=== PATIENT | female | born 1970 | race African-American/Black ===

== ENCOUNTER 2016-12-26 11:17 | Emergency (ER) | payer MEDICAID ==
[2016-12-26] MEDS ORDERED: METOCLOPRAMIDE HCL 10 MG TABLET PO ONE (12:23)
[2016-12-26] MEDS ORDERED: KETOROLAC TROMETHAMINE 60 MG/2 ML SDV IM ONE (12:23)
[2016-12-26] MEDS ORDERED: DIPHENHYDRAMINE HCL 25 MG CAPSULE PO ONE (12:23)
[2016-12-26] MEDS ORDERED: TETRACAINE HCL 0.5% OPH SOLN 2 ML OU ONE (12:41)
--- NOTE | 2016-12-26 12:46 | ER Document Report ---
ED General - General Chief Complaint: Headache Stated Complaint: BLURRED VISION Time Seen by Provider: 12/26/16 12:18 Notes: Patient presents with 2 days of headache gradual onset right-sided than left- sided radiating to her left neck, not throbbing, constant and associated with preceding visual phenomenon in the right eye consisting of "whispers" with trouble from right to left. These sometimes recur during a headache. She has no fever focal weakness numbness tingling. She was seen for the same thing here a couple years ago had a negative head CT. She is not aware of any diagnoses of retinal detachment vitreous hemorrhage or glaucoma., No fever. No trauma TRAVEL OUTSIDE OF THE [place] IN LAST 30 DAYS: No - Related Data Allergies/Adverse Reactions: No Known Allergies Allergy (Verified 12/26/16 11:29) Past Medical History - General Information source: Patient - Social History Smoking Status: Never Smoker Family History: None, Reviewed & Not Pertinent, CAD, DM, Hyperlipidemia, Hypertension, Malignancy - Maternal grandfather had stomach cancer Patient has suicidal ideation: No Patient has homicidal ideation: No - Past Medical History Cardiac Medical History: Reports: Hx Hypercholesterolemia, Hx Hypertension Neurological Medical History: Reports: Hx Seizures - STATES HAD A SEIZURE IN 2004 Endocrine Medical History: Reports: Hx Diabetes Mellitus Type 2 Renal/ Medical History: Denies: Hx Peritoneal Dialysis GI Medical History: Reports: Hx Gastroesophageal Reflux Disease Psychiatric Medical History: Reports: Hx Depression Past Surgical History: Reports: Hx Hysterectomy - Immunizations Hx Diphtheria, Pertussis, Tetanus Vaccination: No Review of Systems - Review of Systems Notes: REVIEW OF SYSTEMS GEN: Denies fever, chills, weight loss ENT: Denies sore throat, nasal discharge, ear pain EYES: Visual phenomena with blurry vision, tinnitus eye pain, discharge CV: Denies chest pain, palpitations, edema RESP: Denies cough, shortness of breath, wheezing GI: Denies abdominal pain, nausea, vomiting, diarrhea MSK: Denies joint pain/swelling, edema, SKIN: Denies rash, skin lesions LYMPH: Denies swollen glands/lymph nodes NEURO: Headache PSYCH: Denies depression, suicidal or homicidal ideation PHYSICAL EXAMINATION General: No acute distress, well-nourished Head: Atraumatic, normocephalic ENT: Mouth normal, oropharynx moist, no exudates or tonsillar enlargement Eyes: Conjunctiva normal, pupils equal, lids normal. Extraocular movements intact. Neck: No JVD, supple, no guarding CVS: Normal rate, regular rhythm, no murmurs Resp: No resp distress, equal and normal breath sounds bilaterally GI: Nondistended, soft, no tenderness to palpation, no rebound or guarding Ext: No deformities, no edema, normal range of motion in upper and lower ext Back: No CVA or midline TTP Skin: No rash, warm Lymphatic: No lymphadeopathy noted Neuro: Awake, alert. Face symmetric. No pronator drift. Normal coordination. GCS 15. Physical Exam - Vital signs Vitals: Temp Pulse Resp BP Pulse Ox 98.3 F 83 16 186/102 H 98 12/26/16 11:29 12/26/16 11:29 12/26/16 11:29 12/26/16 11:29 12/26/16 11:29 Course - Re-evaluation Re-evalutation: 12/26/16 12:46 Diabetic female presents with 2 days of headache hypertension and visual phenomena. Differential includes hypertensive headache, migrainous headacheshe does say that she has had migraines in the past and this feels similar, also elevated intraocular pressure and vitreous detachment. She has a migraine with migraine cocktail get a head CT check eye pressures. 12/26/16 13:01 Patient scan appears at baseline with no signs of increased pressure. Her Martin- Pen pressures are 17 on the right and 16 on the left. Pupils remain reactive. I performed an ultrasound of her right eye where her symptoms are, did not see vitreous hemorrhage, vitreous detachment or retinal detachment on full gain settings of full extraocular movements. Her visual symptoms are likely secondary to migraine versus hypertension, do not believe this is a TIA based on the isolated eye symptoms. She will be discharged home after feeling better for medications and follow-up with her primary care doctor Dr. Ponce next week. I have discussed with the patient there likely diagnosis, aftercare plan, follow -up plans and my usual and customary return precautions. They verbalized understanding of this. 12/26/16 13:47 Blood pressure has decreased spontaneously to the 140s. Safe for discharge home. - Vital Signs Vital signs: Temp Pulse Resp BP Pulse Ox 98.4 F 60 16 147/68 H 97 12/26/16 13:27 12/26/16 13:27 12/26/16 13:27 12/26/16 13:27 12/26/16 13:27 - Diagnostic Test Radiology reviewed: Pending, Image reviewed Discharge - Discharge Clinical Impression: Hypertension Qualifiers: Hypertension type: essential hypertension Qualified Code(s): I10 - Essential ( primary) hypertension Headache Qualifiers: Headache type: other headache syndrome Qualified Code(s): G44.89 - Other headache syndrome Condition: Good Disposition: HOME, SELF-CARE Instructions: Headache ([facility]) Additional Instructions: Her blood pressure was elevated today and he may need to adjust her medications with her primary doctor. We did not find any issues with her eyes, and your CAT scan was normal. Please follow-up with your doctor in 3 days. Forms: Elevated Blood Pressure Referrals: FRANCI PONCE NP [Primary Care Provider] - Follow up as needed
--- NOTE | 2016-12-26 12:55 | RADIOLOGY REPORT (SQ) ---
EXAM DESCRIPTION: CT HEAD WITHOUT COMPLETED DATE/TIME: 12/26/2016 12:41 pm REASON FOR STUDY: HUGHES visual changes COMPARISON: September 2014 TECHNIQUE: Axial images acquired through the brain without intravenous contrast. Images reviewed wi th bone, brain and subdural windows. Images stored on PACS. All CT scanners at this facility use dose modulation, iterative reconstruction, and/or weight based d osing when appropriate to reduce radiation dose to as low as reasonably achievable (ALARA). [facility]: Dose Right [facility]: CareDose [facility]: Dose Right [facility]: Teradose 4D [facility]: Smart Oculus VR RADIATION DOSE: Up-to-date CT equipment and radiation dose reduction techniques were employed. CTDIv ol: 64.6 mGy. DLP: 1163 mGy-cm. mGy. LIMITATIONS: None. FINDINGS: VENTRICLES: Normal size and contour. CEREBRUM: No masses. No hemorrhage. No midline shift. Normal perez/white matter differentiation. N o evidence for acute infarction. CEREBELLUM: No masses. No hemorrhage. No alteration of density. No evidence for acute infarction. EXTRAAXIAL SPACES: No fluid collections. No masses. ORBITS AND GLOBE: No intra- or extraconal masses. Normal contour of globe without masses. CALVARIUM: No fracture. PARANASAL SINUSES: No fluid or mucosal thickening. SOFT TISSUES: No mass or hematoma. OTHER: No other significant finding. IMPRESSION: NORMAL BRAIN CT WITHOUT CONTRAST. TECHNICAL DOCUMENTATION: JOB ID: [id number] Quality ID # [id number]: Final reports with documentation of one or more dose reduction techniques (e.g., Au tomated exposure control, adjustment of the mA and/or kV according to patient size, use of iterative reconstruction technique) 2010 [employer]- All Rights Reserved
[2016-12-26 13:29] VITALS: BP 147/68
== END 2016-12-26 14:00 | disposition home or self-care (01) ==
LOC: ER 11:17
DX: G44.89 Other headache syndrome (principal); I10 Essential (primary) hypertension; H53.8 Other visual disturbances; E11.9 Type 2 diabetes mellitus without complications; Z86.69 Personal history of other diseases of the nervous system and sense organs
CPT/HCPCS: 99284; 96372; 70450; J3490 ×3; J1885

== ENCOUNTER 2017-05-18 07:41 | Emergency (ER) | payer MEDICAID ==
[2017-05-18] MEDS ORDERED: ACETAMINOPHEN 325 MG TABLET PO ONE (07:57)
[2017-05-18] MEDS ORDERED: MORPHINE SULFATE 10 MG/ML INJ IV ONE (08:13)
--- NOTE | 2017-05-18 08:19 | RADIOLOGY REPORT (SQ) ---
EXAM DESCRIPTION: SHOULDER LEFT 2 OR MORE VIEWS COMPLETED DATE/TIME: 05/18/2017 8:10 am REASON FOR STUDY: left shoulder pain COMPARISON: None. NUMBER OF VIEWS: Two views. TECHNIQUE: AP and Y-view images acquired of the left shoulder. LIMITATIONS: None. FINDINGS: MINERALIZATION: Normal. BONES: No acute fracture or dislocation. No worrisome bone lesions. JOINTS: Anterior left humeral head dislocation out of the glenoid fossa. No widening at the acromioclavicular joint. VISUALIZED LUNGS AND RIBS: No pneumothorax. No rib fracture. SOFT TISSUES: No radiopaque foreign body. OTHER: No other significant finding. IMPRESSION: Anterior left humeral head dislocation out of the glenoid TECHNICAL DOCUMENTATION: JOB ID: [id number] [employer]- All Rights Reserved
--- NOTE | 2017-05-18 08:23 | ER Document Report ---
ED Extremity Problem, Upper - General Chief Complaint: Fall Injury Stated Complaint: FALL/SHOULDER PAIN Time Seen by Provider: 05/18/17 07:56 Notes: The patient is a 47-year-old female, past medical history anxiety, hypertension , prior left shoulder dislocations, presents with a left shoulder deformity after she tripped over stairs, reached up to grab the railing and felt her left shoulder pop. Her last meal was last night and she has had no prior anesthesia complications. She denies numbness, tingling, head injury, neck pain or any other injuries. TRAVEL OUTSIDE OF THE [place] IN LAST 30 DAYS: No - Related Data Allergies/Adverse Reactions: No Known Allergies Allergy (Verified 05/18/17 07:58) Past Medical History - General Information source: Patient - Social History Smoking Status: Unknown if Ever Smoked Family History: None, Reviewed & Not Pertinent, CAD, DM, Hyperlipidemia, Hypertension, Malignancy - Maternal grandfather had stomach cancer - Past Medical History Cardiac Medical History: Reports: Hx Hypercholesterolemia, Hx Hypertension Neurological Medical History: Reports: Hx Seizures - STATES HAD A SEIZURE IN 2004 Endocrine Medical History: Reports: Hx Diabetes Mellitus Type 2 Renal/ Medical History: Denies: Hx Peritoneal Dialysis GI Medical History: Reports: Hx Gastroesophageal Reflux Disease Psychiatric Medical History: Reports: Hx Depression Past Surgical History: Reports: Hx Hysterectomy - Immunizations Hx Diphtheria, Pertussis, Tetanus Vaccination: No Review of Systems - Review of Systems Notes: REVIEW OF SYSTEMS: CONSTITUTIONAL: -fevers, -chills EENT: -eye pain, -difficulty swallowing, -nasal congestion CARDIOVASCULAR:-chest pain, -syncope. RESPIRATORY: -cough, -SOB GASTROINTESTINAL: -abdominal pain, - nausea, -vomiting, -diarrhea GENITOURINARY: -dysuria, -hematuria MUSCULOSKELETAL: +left shoulder pain and deformity, -back pain, -neck pain SKIN: -rash or skin lesions. HEMATOLOGIC: -easy bruising or bleeding. LYMPHATIC: -swollen, enlarged glands. NEUROLOGICAL: -altered mental status or loss of consciousness, -headache, - neurologic symptoms PSYCHIATRIC: -anxiety, -depression. ALL OTHER SYSTEMS REVIEWED AND NEGATIVE. Physical Exam - Vital signs Vitals: Temp Pulse Resp BP Pulse Ox 98.2 F 89 18 145/89 H 97 05/18/17 07:57 05/18/17 07:57 05/18/17 07:57 05/18/17 07:57 05/18/17 07:57 - Notes Notes: PHYSICAL EXAMINATION: GENERAL: In moderate distress. HEAD: Atraumatic, normocephalic. EYES: Pupils equal round and reactive to light, extraocular movements intact, sclera anicteric, conjunctiva are normal. ENT: nares patent, oropharynx clear without exudates. Moist mucous membranes. No loose teeth. NECK: Normal range of motion, supple without lymphadenopathy LUNGS: Breath sounds clear to auscultation bilaterally and equal. No wheezes rales or rhonchi. HEART: Regular rate and rhythm without murmurs ABDOMEN: Soft, nontender, normoactive bowel sounds. No guarding, no rebound. No masses appreciated. EXTREMITIES: Visible left shoulder deformity, pt holds arm in adduction. Strong distal pulses and sensation intact. NEUROLOGICAL: Cranial nerves grossly intact. Normal speech, normal gait. Normal sensory and motor exams. SKIN: Warm, Dry, normal turgor, no rashes or lesions noted. Course - Re-evaluation Re-evalutation: Patient with a recurrent left anterior shoulder dislocation. She is neurovascularly intact distally. After IV morphine, attempted to perform scapular manipulation with massaging of her deltoid, but patient could not tolerate the procedure. patient was consented for IV procedural sedation and left shoulder reduction. She understands the risks and benefits. 05/18/17 09:19 Left shoulder dislocation quickly reduced under IV propofol. This was confirmed with post reduction x-ray. Patient was placed in a shoulder immobilizer and, once awake and ambulating without difficulty, she was discharged with follow-up at orthopedics. - Vital Signs Vital signs: Temp Pulse Resp BP Pulse Ox 98.2 F 89 18 145/89 H 97 05/18/17 07:57 05/18/17 07:57 05/18/17 07:57 05/18/17 07:57 05/18/17 07:57 - Diagnostic Test Radiology reviewed: Image reviewed, Reports reviewed Radiology results interpreted by me: Left shoulder x-ray: Anterior left shoulder dislocation. Repeat left shoulder x-ray: Successful reduction Procedures - Conscious Sedation Conscious sedation Time started: 09:03 Time completed: 09:23 Consent obtained: Yes Indication: Left shoulder dislocation Last meal: 19:00 last night Pt with a mild systemic disease.: P2. - ASA Classification. Airway Evaluation: Normal anatomy Mallampati Classification: Class 1 Used during procedure: Suction available, IV access obtained, Pulse ox on pt., library monitor on pt. Medications administered: Diprivan Reversal agents: None I personally performed/intraservice time: Sedation, Procedure, 30 min or less Complications: No - Immobilization Left Arm Time completed: :15 Pre-Proc Neuro Vasc Exam: Normal Immobilizer type: Shoulder immobilizer Performed by: Provider Post-Proc Neuro Vasc Exam: Normal Alignment checked and good: Yes - Joint Reduction/Fracture Care Left Shoulder Time completed: : Consent obtained: Yes Conscious sedation: Yes Pre-procedure NV exam: Yes Fracture: Other - Dislocation Manipulation comment: Traction-Countertraction Technique Post-procedure NV exam: Yes Post-reduction x-ray: Joint reduced Reduction attempts: 1 Complications: No Discharge - Discharge Clinical Impression: Recurrent dislocation, left shoulder Condition: Stable Disposition: HOME, SELF-CARE Additional Instructions: Dislocation You have suffered a dislocation of your joint. It has been reduced (put back in place). It will take time for the tissues around the joint to heal. The joint will be immobilized at first. If possible, elevate the injured area and apply ice packs. After healing is underway, the joint will require [id number] and strengthening exercises. The follow-up care is important in avoiding residual problems following your dislocation. If you note any numbness, muscle weakness, or severe swelling in the affected area, call the doctor or return for re-evaluation at once. Forms: Elevated Blood Pressure Referrals: FREDERICK FARR DO [ACTIVE STAFF] - Follow up as needed
[2017-05-18] MEDS ORDERED: PROPOFOL INJ 200 MG/20 ML VIAL IV ONE (08:39)
[2017-05-18] MEDS ORDERED: NORMAL SALINE 1000 ML 1,000 ML IV ONE (08:54)
--- NOTE | 2017-05-18 09:33 | RADIOLOGY REPORT (SQ) ---
EXAM DESCRIPTION: SHOULDER LEFT 2 OR MORE VIEWS COMPLETED DATE/TIME: 05/18/2017 9:21 am REASON FOR STUDY: post-reduction COMPARISON: Left shoulder films earlier today NUMBER OF VIEWS: Two views TECHNIQUE: AP and Y-view images acquired of the left shoulder. LIMITATIONS: None. FINDINGS: Anterior left glenohumeral dislocation seen on prior films 0800 hours today has been reduc ed. Currently normal glenohumeral joint alignment. No fracture. AC joint intact. Left upper ribs, scap grupo, clavicle unremarkable. IMPRESSION: Post reduction left anterior glenohumeral dislocation. Currently there is normal alignm ent at the left shoulder joint without plain film evidence of acute fracture TECHNICAL DOCUMENTATION: JOB ID: [id number] [employer]- All Rights Reserved
[2017-05-18 09:57] VITALS: BP 124/74
== END 2017-05-18 10:00 | disposition home or self-care (01) ==
LOC: ER 07:41
DX: M24.412 Recurrent dislocation, left shoulder (principal); I10 Essential (primary) hypertension; E11.9 Type 2 diabetes mellitus without complications
CPT/HCPCS: 99284; 96361; 99152; 96374; 73030; 23650; L3650; J3490; J2270; J7030; J2704

== ENCOUNTER 2017-08-08 03:36 | Emergency (ER) | payer MEDICAID ==
--- NOTE | 2017-08-08 03:56 | ER Document Report ---
ED General - General Chief Complaint: Epigastric Pain Stated Complaint: CHEST,ABDOMINAL PAIN Time Seen by Provider: 08/08/17 03:55 TRAVEL OUTSIDE OF THE [place] IN LAST 30 DAYS: No - Related Data Allergies/Adverse Reactions: No Known Allergies Allergy (Verified 05/18/17 07:58) Past Medical History - Social History Smoking Status: Never Smoker Frequency of alcohol use: None Drug Abuse: None Family History: None, Reviewed & Not Pertinent, CAD, DM, Hyperlipidemia, Hypertension, Malignancy - Maternal grandfather had stomach cancer - Past Medical History Cardiac Medical History: Reports: Hx Hypercholesterolemia, Hx Hypertension Neurological Medical History: Reports: Hx Seizures - STATES HAD A SEIZURE IN 2004 Endocrine Medical History: Reports: Hx Diabetes Mellitus Type 2 Renal/ Medical History: Denies: Hx Peritoneal Dialysis GI Medical History: Reports: Hx Gastroesophageal Reflux Disease Psychiatric Medical History: Reports: Hx Depression Past Surgical History: Reports: Hx Hysterectomy - Immunizations Hx Diphtheria, Pertussis, Tetanus Vaccination: No Course - EKG Interpretation by Me Additional EKG results interpreted by me: 08/08/17 03:56 EKG is reviewed and interpreted by me. EKG shows sinus rhythm with a rate of [address] segment elevation or depression. No concerning T-wave inversions. MD interval, QRS duration, QTc intervals are within normal range. Old EKG for comparison is from February 07, 2015. Discharge - Discharge Referrals: FRANCI PONCE NP [Primary Care Provider] - Follow up as needed
[2017-08-08] MEDS ORDERED: MAG HYDROX/AL HYDROX/SIMETH SUSP 30 ML UDCUP PO ONE (04:01)
[2017-08-08] MEDS ORDERED: LIDOCAINE 2% VISCOUS SOLN 20 ML UDCUP PO ONE (04:01)
[2017-08-08] MEDS ORDERED: METOCLOPRAMIDE HCL ORAL SOLN 10 MG/10 ML UDCUP PO ONE (04:01)
[2017-08-08] MEDS ORDERED: SIMETHICONE 80 MG TAB.CHEW PO ONE (04:02)
--- NOTE | 2017-08-08 05:27 | ER Document Report ---
Doctor's Note Notes: 08/08/17 05:26 I performed a quick triage evaluation of the patient. Patient is a 47-year-old female who presents with complaint of epigastric pain rating to the back. The complaint on the triage note also mentions chest pain however the patient says she does not have true chest pain is just the pain in the epigastrium that radiates to her back. She does have history of gastritis and has had similar pain with gastritis in the past however this is more severe. She did vomit once. No blood or emesis. She says the pain may also be related to gas however the pain seems more severe than just typical gas pain to her at this time. She did have a bowel movement for coming to the ER and says it was a normal bowel movement. She denies recent constipation. She denies any blood in her stool. She denies any fevers. She has no other complaints at this time. No history of abdominal surgeries. Does take Zantac for her history of gastritis. She had an endoscopy but she says it was many years ago. She denies them finding anything other than gastritis on endoscopy. Exam patient has pain reproducible palpation in the epigastric region. She is in moderate pain. The remainder of her abdomen is nontender. She has no pain to palpation of her chest. Vital signs are stable. I will order blood work as well as start treatment for her pain. Normal pulses in feet. 08/08/17 05:40 08/08/17 05:42 Patient continues to have pain. I have ordered some Dilaudid for pain control. Her labs just now got drawn except hard time obtaining blood. I think abdominal aneurysm is unlikely however being that the patient does have epigastric pain rating to her back I have ordered a abdominal ultrasound to evaluate her aorta.
[2017-08-08] MEDS ORDERED: HYDROMORPHONE HCL INJ/PF 2 MG/ML AMPULE IV ONE (05:40)
[2017-08-08 06:03] LABS: ABSOLUTE BASOPHILS # (AUTO) 0.1 10^3/uL (0.0-0.2); ABSOLUTE LYMPHOCYTES (AUTO) 1.9 10^3/uL (0.5-4.7); ABSOLUTE MONOCYTES (AUTO) 0.8 10^3/uL (0.1-1.4); ABSOLUTE NEUT (AUTO) 7.8 10^3/uL (1.7-8.2); BASOPHILS % (AUTO) 0.5 % (0-2); EOSINOPHILS % (AUTO) 0.2 % (0-6); HEMOGLOBIN 12.7 g/dL (12.0-15.5); LYMPHOCYTES % (AUTO) 18.1 % (13-45); MEAN CORPUSCULAR HGB CONC 32.4 g/dL (32.0-36.0); MEAN CORPUSCULAR VOLUME 77 fl (80-97); MONOCYTES % (AUTO) 7.2 % (3-13); PLATELET COUNT 524 10^3/uL (150-450); RED BLOOD COUNT 5.05 10^6/uL (3.72-5.28); RED CELL DISTRIBUTION WIDTH 14.9 % (11.5-14.0); TOTAL CELLS COUNTED % (AUTO) 100 %; WHITE BLOOD COUNT 10.6 10^3/uL (4.0-10.5)
[2017-08-08 06:31] LABS: ALANINE AMINOTRANSFERASE 26 U/L (9-52); ALBUMIN 4.4 g/dL (3.5-5.0); ALKALINE PHOSPHATASE 65 U/L (38-126); ANION GAP 12 (5-19); ASPARTATE AMINO TRANSFERASE 18 U/L (14-36); BILIRUBIN,DIRECT 0.3 mg/dL (0.0-0.4); BILIRUBIN,TOTAL 0.3 mg/dL (0.2-1.3); BLOOD UREA NITROGEN 9 mg/dL (7-20); CALCIUM 10.5 mg/dL (8.4-10.2); CARBON DIOXIDE 24 mmol/L (22-30); CHLORIDE 106 mmol/L (98-107); GLUCOSE 135 mg/dL (75-110); POTASSIUM 4.7 mmol/L (3.6-5.0); SODIUM 141.8 mmol/L (137-145); TOTAL PROTEIN 8.1 g/dL (6.3-8.2)
--- NOTE | 2017-08-08 06:40 | RADIOLOGY REPORT (SQ) ---
EXAM DESCRIPTION: U/S ABD AORTIC SCREENING CLINICAL HISTORY: 47 years, Female, evaluate aorta COMPARISON: 4. LIMITATIONS: Body habitus and bowel artifact. FINDINGS: Abdominal aorta: Proximal: 2.0 x 1.5 cm. Mid: 1.7 x 1.5 cm. Distal: Obscured. Iliacs: Obscured. IMPRESSION: Incomplete exam due to bowel gas artifact. Recommend noncontrast CT screening of the aorta as clinically warranted.
[2017-08-08] MEDS ORDERED: NORMAL SALINE 1000 ML 1,000 ML IV ONE (07:39)
--- NOTE | 2017-08-08 09:00 | RADIOLOGY REPORT (SQ) ---
EXAM DESCRIPTION: CTA ABDOMEN/PELVIS WCTA CHEST COMPLETED DATE/TIME: 08/08/2017 8:19 am REASON FOR STUDY: epigastric pain rad to back fu US results FINDINGS: CTA OF THE ABDOMEN: AORTA AND VESSELS: No aneurysm. No dissection. Renal arteries, SMA, celiac without stenosis. LIVER: Geographic fatty infiltration of the liver. SPLEEN: No abnormality seen. PANCREAS: No abnormality seen. GALLBLADDER: Cholelithiasis. ADRENAL GLANDS: No significant masses or asymmetry. RIGHT KIDNEY AND URETER: Small cortical cysts noted within the right kidney most too small to charact erize. . LEFT KIDNEY AND URETER: Prominent cortical cyst upper pole left kidney. Multiple additional cortical cyst too small to characterize. RETROPERITONEUM: No retroperitoneal adenopathy, hemorrhage or masses. BOWEL AND PERITONEAL CAVITY: No masses or inflammatory changes. No free fluid or peritoneal masses. APPENDIX: Normal. ABDOMINAL WALL: Diastases of rectus muscles. Umbilical hernia. BONY STRUCTURES: No significant or acute findings. 3-D IMAGING: Confirms the above findings. OTHER: NO OTHER SIGNIFICANT FINDING. CTA OF CHEST: LUNGS AND PLEURA: There is chronic scarring noted in the lingula. THORACIC AORTA AND GREAT VESSELS: No aneurysm. The ascending thoracic aorta measures 2.9 x 2.7 cm. The descending thoracic aorta measures 2.4 x 2.3 cm. HEART: No pericardial effusion. No significant coronary artery calcifications. PULMONARY ARTERIES: No pulmonary emboli. HILAR AND MEDIASTINAL STRUCTURES: Nonenlarged anterior mediastinal node measuring 0.5 cm. No adenopa thy. HARDWARE: None in the chest.. THYROID AND OTHER SOFT TISSUES: Multinodular thyroid. IMPRESSION: 1 . NO EVIDENCE OF THORACIC ANEURYSM. MULTINODULAR THYROID. CHRONIC LINGULAR SCARRING . 2. NO EVIDENCE OF ABDOMINAL AORTIC ANEURYSM. MULTIPLE HYPODENSITIES WITHIN THE KIDNEYS MOST CONS ISTENT WITH CORTICAL CYST. FATTY INFILTRATION THE LIVER. CHOLELITHIASIS. TECHNICAL DOCUMENTATION: JOB ID: [id number] Quality ID # [id number]: Final reports with documentation of one or more dose reduction techniques (e.g., Au tomated exposure control, adjustment of the mA and/or kV according to patient size, use of iterative reconstruction technique) 2010 [employer]- All Rights Reserved COMPARISON: Aortic ultrasound 08/08/2017. Abdominal ultrasound 10/01/2014. TECHNIQUE: CT scan of the abdominal aorta extending to the iliac bifurcation performed with and with out intravenous contrast using helical scanning technique with dynamic intravenous contrast injection . Images reviewed with lung, soft tissue, and bone windows. Reconstructed coronal and sagittal MPR im ages reviewed. All images stored on PACS. Advanced 3D imaging as volume rendering, MIPS, SSD performed? yes All CT scanners at this facility use dose modulation, iterative reconstruction, and/or weight based d osing when appropriate to reduce radiation dose to as low as reasonably achievable (ALARA). [facility]: Dose Right [facility]: CareDose [facility]: Dose Right [facility]: Teradose 4D [facility]: ProductGram CONTRAST TYPE AND DOSE: contrast/concentration: Isovue 370.00 mg/ml; Total Contrast Delivered: 100.0 ml; Total Saline Delivered: 90.0 ml contrast/concentration: Isovue 370.00 mg/ml; Total Contrast Delivered: 100.0 ml; Total Saline Deliver ed: 90.0 mlIsovue 370. 100 mL. RENAL FUNCTION: Creatinine: 0.77 RADIATION DOSE: 4577.46 LIMITATIONS: None.
--- NOTE | 2017-08-08 09:00 | RADIOLOGY REPORT (SQ) ---
EXAM DESCRIPTION: CTA ABDOMEN/PELVIS WCTA CHEST COMPLETED DATE/TIME: 08/08/2017 8:19 am REASON FOR STUDY: epigastric pain rad to back fu US results FINDINGS: CTA OF THE ABDOMEN: AORTA AND VESSELS: No aneurysm. No dissection. Renal arteries, SMA, celiac without stenosis. LIVER: Geographic fatty infiltration of the liver. SPLEEN: No abnormality seen. PANCREAS: No abnormality seen. GALLBLADDER: Cholelithiasis. ADRENAL GLANDS: No significant masses or asymmetry. RIGHT KIDNEY AND URETER: Small cortical cysts noted within the right kidney most too small to charact erize. . LEFT KIDNEY AND URETER: Prominent cortical cyst upper pole left kidney. Multiple additional cortical cyst too small to characterize. RETROPERITONEUM: No retroperitoneal adenopathy, hemorrhage or masses. BOWEL AND PERITONEAL CAVITY: No masses or inflammatory changes. No free fluid or peritoneal masses. APPENDIX: Normal. ABDOMINAL WALL: Diastases of rectus muscles. Umbilical hernia. BONY STRUCTURES: No significant or acute findings. 3-D IMAGING: Confirms the above findings. OTHER: NO OTHER SIGNIFICANT FINDING. CTA OF CHEST: LUNGS AND PLEURA: There is chronic scarring noted in the lingula. THORACIC AORTA AND GREAT VESSELS: No aneurysm. The ascending thoracic aorta measures 2.9 x 2.7 cm. The descending thoracic aorta measures 2.4 x 2.3 cm. HEART: No pericardial effusion. No significant coronary artery calcifications. PULMONARY ARTERIES: No pulmonary emboli. HILAR AND MEDIASTINAL STRUCTURES: Nonenlarged anterior mediastinal node measuring 0.5 cm. No adenopa thy. HARDWARE: None in the chest.. THYROID AND OTHER SOFT TISSUES: Multinodular thyroid. IMPRESSION: 1 . NO EVIDENCE OF THORACIC ANEURYSM. MULTINODULAR THYROID. CHRONIC LINGULAR SCARRING . 2. NO EVIDENCE OF ABDOMINAL AORTIC ANEURYSM. MULTIPLE HYPODENSITIES WITHIN THE KIDNEYS MOST CONS ISTENT WITH CORTICAL CYST. FATTY INFILTRATION THE LIVER. CHOLELITHIASIS. TECHNICAL DOCUMENTATION: JOB ID: [id number] Quality ID # [id number]: Final reports with documentation of one or more dose reduction techniques (e.g., Au tomated exposure control, adjustment of the mA and/or kV according to patient size, use of iterative reconstruction technique) 2010 [employer]- All Rights Reserved COMPARISON: Aortic ultrasound 08/08/2017. Abdominal ultrasound 10/01/2014. TECHNIQUE: CT scan of the abdominal aorta extending to the iliac bifurcation performed with and with out intravenous contrast using helical scanning technique with dynamic intravenous contrast injection . Images reviewed with lung, soft tissue, and bone windows. Reconstructed coronal and sagittal MPR im ages reviewed. All images stored on PACS. Advanced 3D imaging as volume rendering, MIPS, SSD performed? yes All CT scanners at this facility use dose modulation, iterative reconstruction, and/or weight based d osing when appropriate to reduce radiation dose to as low as reasonably achievable (ALARA). [facility]: Dose Right [facility]: CareDose [facility]: Dose Right [facility]: Teradose 4D [facility]: Iotum CONTRAST TYPE AND DOSE: contrast/concentration: Isovue 370.00 mg/ml; Total Contrast Delivered: 100.0 ml; Total Saline Delivered: 90.0 ml contrast/concentration: Isovue 370.00 mg/ml; Total Contrast Delivered: 100.0 ml; Total Saline Deliver ed: 90.0 mlIsovue 370. 100 mL. RENAL FUNCTION: Creatinine: 0.77 RADIATION DOSE: 4577.46 LIMITATIONS: None.
[2017-08-08 09:21] VITALS: BP 126/68
--- NOTE | 2017-08-08 09:21 | ER Document Report ---
ED General - General Chief Complaint: Epigastric Pain Stated Complaint: CHEST,ABDOMINAL PAIN Time Seen by Provider: 08/08/17 03:55 TRAVEL OUTSIDE OF THE [place]. IN LAST 30 DAYS: No - HPI Patient complains to provider of: Epigastric pain Notes: Patient coming in for evaluation of epigastric pain that radiates to his back. Patient states pain started around 9 PM. Patient states pain is increased with movement. Patient was seen by my physician. The patient was in significant distress and was initially concerned about possible aortic pathology. Ultrasound was performed however due to body habitus and bowel gas is incomplete study. Recommend CT scan. Upon my evaluation patient resting comfortably states slight nausea denies any vomiting fevers chills diarrhea. Patient states she does have a history of gastritis however was given GI cocktail with minimal relief. Patient was also given Dilaudid and currently states that she is feeling better. - Related Data Allergies/Adverse Reactions: No Known Allergies Allergy (Verified 05/18/17 07:58) Past Medical History - Social History Smoking Status: Never Smoker Family History: None, Reviewed & Not Pertinent, CAD, DM, Hyperlipidemia, Hypertension, Malignancy - Maternal grandfather had stomach cancer Patient has suicidal ideation: No Patient has homicidal ideation: No - Past Medical History Cardiac Medical History: Reports: Hx Hypercholesterolemia, Hx Hypertension Neurological Medical History: Reports: Hx Seizures - STATES HAD A SEIZURE IN 2004 Endocrine Medical History: Reports: Hx Diabetes Mellitus Type 2 Renal/ Medical History: Denies: Hx Peritoneal Dialysis GI Medical History: Reports: Hx Gastroesophageal Reflux Disease Psychiatric Medical History: Reports: Hx Depression Past Surgical History: Reports: Hx Hysterectomy - Immunizations Hx Diphtheria, Pertussis, Tetanus Vaccination: No Review of Systems - Review of Systems Constitutional: No symptoms reported EENT: No symptoms reported Cardiovascular: No symptoms reported Respiratory: No symptoms reported Gastrointestinal: Abdominal pain Genitourinary: No symptoms reported Female Genitourinary: No symptoms reported Musculoskeletal: No symptoms reported Skin: No symptoms reported Hematologic/Lymphatic: No symptoms reported Neurological/Psychological: No symptoms reported -: Yes All other systems reviewed and negative Physical Exam - Vital signs Vitals: Resp Pulse Ox 16 100 08/08/17 03:57 08/08/17 03:57 Interpretation: Normal - General General appearance: Appears well, Alert - HEENT Head: Normocephalic, Atraumatic Eyes: Normal Pupils: PERRL - Respiratory Respiratory status: No respiratory distress Chest status: Nontender Breath sounds: Normal Chest palpation: Normal - Cardiovascular Rhythm: Regular Heart sounds: Normal auscultation Murmur: No - Abdominal Inspection: Normal Distension: No distension Bowel sounds: Normal Tenderness: Tender - Mild to moderate tenderness in epigastric region. No guarding or rebound Organomegaly: No organomegaly - Back Back: Normal, Nontender - Extremities General upper extremity: Normal inspection, Nontender, Normal color, Normal ROM , Normal temperature General lower extremity: Normal inspection, Nontender, Normal color, Normal ROM , Normal temperature, Normal weight bearing. No: Holly's sign - Neurological Neuro grossly intact: Yes Cognition: Normal Orientation: AAOx4 [place] Coma Scale Eye Opening: Spontaneous Gopi Coma Scale Verbal: Oriented Gopi Coma Scale Motor: Obeys Commands Gopi Coma Scale Total: 15 Speech: Normal Motor strength normal: LUE, RUE, LLE, RLE Sensory: Normal - Psychological Associated symptoms: Normal affect, Normal mood - Skin Skin Temperature: Warm Skin Moisture: Dry Skin Color: Normal Course - Re-evaluation Re-evalutation: 08/08/17 09:16 CTA was performed for evaluation of the aorta. No signs of acute dissection or aneurysm. Patient does have gallstones. With patient's history gastritis she will be placed on omeprazole did explain to the patient that she will need to follow-up with her primary care physician and or surgery team she continues to have pain. Patient was instructed to stick to a clear liquid diet. Patient agrees with this assessment and plan - Vital Signs Vital signs: Temp Pulse Resp BP Pulse Ox 14 125/91 H 98 08/08/17 07:01 08/08/17 07:01 08/08/17 07:01 - Laboratory Result Diagrams: 08/08/17 05:35 08/08/17 05:35 Laboratory results interpreted by me: 08/08/17 08/08/17 05:35 05:35 WBC 10.6 H MCV 77 L MCH 25.0 L RDW 14.9 H Plt Count 524 H Glucose 135 H Calcium 10.5 H Discharge - Discharge Clinical Impression: Epigastric abdominal pain Cholelithiasis Qualifiers: Cholelithiasis location: other site Biliary obstruction: without biliary obstruction Qualified Code(s): K80.80 - Other cholelithiasis without obstruction Condition: Good Disposition: HOME, SELF-CARE Instructions: Low-Fat Diet ([facility]), Gastritis ([facility]), Surgeon Additional Instructions: Your echo today does not show clear-cut etiology for your abdominal pain. Your CT scans or normal except showing that you have gallstones within your gallbladder. At this time does not seem to be causing significant issue your laboratory studies looking at her gallbladder looking for signs of infection are all negative. There is no signs of infection of the gallbladder on the CAT scan. Possible etiology for your pain could also be underlying gastritis or inflammation of the stomach. Would recommend changing your Zantac to the omeprazole prescribed. We also will give the Bentyl for abdominal pain. Recommend following up with your primary care physician for further surgical or GI referral. Please observe a clear liquid diet for the next 12 hours and advance as tolerated. Prescriptions: Dicyclomine HCl [Bentyl 20 mg Tablet] 20 mg PO QID #30 tablet Omeprazole 20 mg PO DAILY #30 capsule. Ondansetron [Zofran Odt] 4 mg PO Q6 PRN #30 tab.rapdis PRN Reason: For Nausea/Vomiting Forms: Return to Work Referrals: FRANCI PONCE, PROCEDURES RN [Primary Care Provider] - Follow up as needed
--- NOTE | 2017-08-08 09:33 | EKG REPORT ---
SEVERITY:- OTHERWISE NORMAL ECG - SINUS RHYTHM BORDERLINE LEFT AXIS DEVIATION : Confirmed by: Kartik Chapman 08-Aug-2017 09:33:31
== END 2017-08-08 09:31 | disposition home or self-care (01) ==
LOC: ER 03:36
DX: K80.20 Calculus of gallbladder without cholecystitis without obstruction (principal); R10.13 Epigastric pain; R11.0 Nausea; I10 Essential (primary) hypertension; E11.9 Type 2 diabetes mellitus without complications; Z87.19 Personal history of other diseases of the digestive system; Z80.0 Family history of malignant neoplasm of digestive organs
CPT/HCPCS: 93005; 99285; 96361; 96374; 36415; 83690; 85025; 80053; 84484; 76706; 71275; 74174; 93010; J3490 ×3; J1170; J7030

== ENCOUNTER 2017-12-10 23:31 | Emergency (ER) | payer MEDICAID ==
--- NOTE | 2017-12-11 00:34 | RADIOLOGY REPORT (SQ) ---
EXAM DESCRIPTION: CT HEAD WITHOUT IV CONTRAST COMPLETED DATE/TME: 12/10/2017 00:00 CLINICAL HISTORY: 47 years Female, stroke signs COMPARISON: 7.8.17 TECHNIQUE: No contrast. Coronal and sagittal reformat. This exam was performed according to our departmental dose-optimization program, which includes automated exposure control, adjustment of the mA and/or kV according to patient size and/or use of iterative reconstruction technique. FINDINGS: No hemorrhage or infarct. No mass, mass effect, or midline shift. Brain and extra-axial structures appear intact. IMPRESSION: Normal CT of the head.
[2017-12-11] MEDS ORDERED: METOCLOPRAMIDE HCL INJ/PF 10 MG/2 ML SDV IV ONE (01:05)
[2017-12-11] MEDS ORDERED: DIPHENHYDRAMINE HCL 50 MG/ML VIAL IV ONE (01:05)
[2017-12-11] MEDS ORDERED: KETOROLAC TROMETHAMINE INJ/PF 30 MG/1 ML SDV IV ONE (01:05)
--- NOTE | 2017-12-11 01:06 | ER Document Report ---
ED Headache - General Chief Complaint: Headache >24 hrs old Stated Complaint: HEADACHE,NECK PAIN,LEFT ARM NUMB,SICK TO STOMACH Time Seen by Provider: 12/11/17 00:53 Notes: 47-year-old female patient with history of migraines. History of aura to the emergency department complaining of a headache. States that she has had a headache today. Had some black spots in her eyes. Had some tingling in her bilateral hands and arms. No loss of consciousness or not the worse headache of her life. No fever. No neck stiffness. TRAVEL OUTSIDE OF THE [place] IN LAST 30 DAYS: No - HPI Patient complains to provider of: Headache, "Migraine" Patient reports: Occasional migraines. No: Prior hemorrhage Onset: This morning Onset was: Gradual. denies: Thunderclap Timing: Still present Quality of pain: Achy Severity: Mild Context: denies: CO exposure, Head injury, Meningitis exposure - Related Data Allergies/Adverse Reactions: No Known Allergies Allergy (Verified 05/18/17 07:58) Past Medical History - General Information source: Patient - Social History Smoking Status: Never Smoker Smoking Education Provided: No Drug Abuse: None Lives with: Family Family History: None, Reviewed & Not Pertinent, CAD, DM, Hyperlipidemia, Hypertension, Malignancy - Maternal grandfather had stomach cancer Patient has suicidal ideation: No Patient has homicidal ideation: No - Past Medical History Cardiac Medical History: Reports: Hx Hypercholesterolemia, Hx Hypertension Neurological Medical History: Reports: Hx Seizures - STATES HAD A SEIZURE IN 2004 Endocrine Medical History: Reports: Hx Diabetes Mellitus Type 2 Renal/ Medical History: Denies: Hx Peritoneal Dialysis GI Medical History: Reports: Hx Gastroesophageal Reflux Disease Psychiatric Medical History: Reports: Hx Depression Past Surgical History: Reports: Hx Hysterectomy - Immunizations Hx Diphtheria, Pertussis, Tetanus Vaccination: No Review of Systems - Review of Systems Constitutional: No symptoms reported EENT: No symptoms reported, Blurred vision. denies: Tearing, Double vision, Sinus pressure, Sinus discharge Cardiovascular: No symptoms reported Respiratory: No symptoms reported Gastrointestinal: No symptoms reported Genitourinary: No symptoms reported Female Genitourinary: No symptoms reported Musculoskeletal: No symptoms reported Skin: No symptoms reported Hematologic/Lymphatic: No symptoms reported Neurological/Psychological: Sensory change, Headaches, Numbness. denies: Paralysis, Seizure, Lost consciousness Physical Exam - Vital signs Vitals: Temp Pulse Resp BP Pulse Ox 98.5 F 89 20 177/97 H 97 12/10/17 23:46 12/10/17 23:46 12/10/17 23:46 12/10/17 23:46 12/10/17 23:46 Interpretation: Normal - General General appearance: Appears well, Alert - HEENT Head: Normocephalic, Atraumatic Eyes: Normal Pupils: PERRL - Respiratory Respiratory status: No respiratory distress Chest status: Nontender Breath sounds: Normal Chest palpation: Normal - Cardiovascular Rhythm: Regular Heart sounds: Normal auscultation Murmur: No - Abdominal Inspection: Normal Distension: No distension Bowel sounds: Normal Tenderness: Nontender Organomegaly: No organomegaly - Back Back: Normal, Nontender - Extremities General upper extremity: Normal inspection, Nontender, Normal color, Normal ROM , Normal temperature General lower extremity: Normal inspection, Nontender, Normal color, Normal ROM , Normal temperature, Normal weight bearing. No: Holly's sign - Neurological Neuro grossly intact: Yes Cognition: Normal Orientation: AAOx4 Gopi Coma Scale Eye Opening: Spontaneous Gopi Coma Scale Verbal: Oriented Fischer Coma Scale Motor: Obeys Commands Fischer Coma Scale Total: 15 Speech: Normal. No: Dysarthria, Expressive aphasia, Receptive aphasia Cranial nerves: Normal. No: Facial palsy, Gaze palsy, Sensory deficit, Tongue deviation Cerebellar coordination: Normal. No: Gait ataxia, Finger-nose rhombey Motor strength normal: LUE, RUE, LLE, RLE Additional motor exam normals: Equal diagrammer. No: Involuntary movements, Plantar flexion, Pronator drift, Weakness, Hemiplegia Sensory: Normal - Psychological Associated symptoms: Normal affect, Normal mood - Skin Skin Temperature: Warm Skin Moisture: Dry Skin Color: Normal Course - Re-evaluation Re-evalutation: 12/11/17 03:22 Patient with normal head CT, chest x-ray unremarkable. Normal labs and EKG. Symptoms have resolved after migraine treatment. Patient reports that she had headaches as a child and migraines who presented exactly the same way. At this time unlikely this represents an acute stroke. Strict warning signs were given with regards to neurological concerning symptoms such as slurred speech, weakness of the upper lower extremity, facial weakness or any other concerns. Patient feels comfortable with this plan. Headache is gone and symptoms are gone. Comfortable discharging at this time in stable condition. - Vital Signs Vital signs: Temp Pulse Resp BP Pulse Ox 98.1 F 81 17 121/62 100 12/11/17 03:04 12/11/17 03:04 12/11/17 03:04 12/11/17 03:04 12/11/17 03:04 - Laboratory Result Diagrams: 12/11/17 00:51 12/11/17 00:51 Laboratory results interpreted by me: 12/11/17 12/11/17 00:51 00:51 MCV 76 L MCH 25.2 L RDW 15.6 H Plt Count 555 H Sodium 145.3 H Carbon Dioxide 31 H Glucose 117 H Discharge - Discharge Clinical Impression: Migraine headache Qualifiers: Migraine type: unspecified Status migrainosus presence: without status migrainosus Intractability: not intractable Qualified Code(s): G43.909 - Migraine, unspecified, not intractable, without status migrainosus Condition: Good Disposition: HOME, SELF-CARE Instructions: Headache ([facility]), Reglan ([facility]), Toradol Injection ([facility]) Additional Instructions: We think that you possibly had a migraine however if symptoms return, you begin to notice weakness of the upper or lower extremities, slurred speech, worsening headache or any other concerns it will be very important that you return for a repeat evaluation. Forms: Return to Work Referrals: FRANCI PONCE FIRER [employer]ANE [Primary Care Provider] - Follow up as needed
[2017-12-11 01:21] LABS: ALANINE AMINOTRANSFERASE 21 U/L (9-52); ALBUMIN 3.9 g/dL (3.5-5.0); ALKALINE PHOSPHATASE 79 U/L (38-126); ANION GAP 11 (5-19); ASPARTATE AMINO TRANSFERASE 17 U/L (14-36); BILIRUBIN,DIRECT 0.3 mg/dL (0.0-0.4); BILIRUBIN,TOTAL 0.3 mg/dL (0.2-1.3); BLOOD UREA NITROGEN 15 mg/dL (7-20); CALCIUM 10.2 mg/dL (8.4-10.2); CARBON DIOXIDE 31 mmol/L (22-30); CHLORIDE 103 mmol/L (98-107); GLUCOSE 117 mg/dL (75-110); POTASSIUM 4.2 mmol/L (3.6-5.0); SODIUM 145.3 mmol/L (137-145); TOTAL PROTEIN 7.5 g/dL (6.3-8.2)
[2017-12-11 01:26] LABS: ABSOLUTE BASOPHILS # (AUTO) 0.1 10^3/uL (0.0-0.2); ABSOLUTE EOSINOPHILS # (AUTO) 0.1 10^3/uL (0.0-0.6); ABSOLUTE LYMPHOCYTES (AUTO) 2.4 10^3/uL (0.5-4.7); ABSOLUTE MONOCYTES (AUTO) 0.8 10^3/uL (0.1-1.4); BASOPHILS % (AUTO) 0.7 % (0-2); EOSINOPHILS % (AUTO) 1.3 % (0-6); HEMATOCRIT 37.3 % (36.0-47.0); HEMOGLOBIN 12.3 g/dL (12.0-15.5); LYMPHOCYTES % (AUTO) 25.3 % (13-45); MEAN CORPUSCULAR HEMOGLOBIN 25.2 pg (27.0-33.4); MEAN CORPUSCULAR HGB CONC 33.1 g/dL (32.0-36.0); MEAN CORPUSCULAR VOLUME 76 fl (80-97); MONOCYTES % (AUTO) 8.2 % (3-13); PLATELET COUNT 555 10^3/uL (150-450); RED CELL DISTRIBUTION WIDTH 15.6 % (11.5-14.0); SEGMENTED NEUTROPHILS % (AUTO) 64.5 % (42-78); TOTAL CELLS COUNTED % (AUTO) 100 %; WHITE BLOOD COUNT 9.3 10^3/uL (4.0-10.5)
[2017-12-11 03:04] VITALS: BP 121/62
--- NOTE | 2017-12-11 04:47 | RADIOLOGY REPORT (SQ) ---
EXAM DESCRIPTION: XR CHEST 2 VIEWS COMPLETED DATE/TME: 12/10/2017 00:00 CLINICAL HISTORY: 47 years Female, stroke signs COMPARISON: None. FINDINGS: Adequate lung volume, clear parenchyma, normal cardiac silhouette, and intact bony thorax. IMPRESSION: No acute cardiopulmonary findings.
--- NOTE | 2017-12-11 09:56 | EKG REPORT ---
SEVERITY:- ABNORMAL ECG - SINUS RHYTHM LEFT VENTRICULAR HYPERTROPHY : Confirmed by: Kartik Chapman 11-Dec-2017 09:55:32
== END 2017-12-11 03:18 | disposition home or self-care (01) ==
LOC: ER 23:31
DX: G43.909 Migraine, unspecified, not intractable, without status migrainosus (principal); H53.8 Other visual disturbances; R20.2 Paresthesia of skin; R20.0 Anesthesia of skin
CPT/HCPCS: 93005; 99285; 96374; 96375; 36415; 85025; 80053; 84484; 71046; 70450; 93010; J1200; J1885; J2765

== ENCOUNTER → 2017-12-28 | Outpatient (CLI) | payer MEDICAID ==
--- NOTE | 2017-12-28 14:03 | RADIOLOGY REPORT (SQ) ---
EXAM DESCRIPTION: CAROTID DOPPLER COMPLETED DATE/TIME: 12/28/2017 1:16 pm REASON FOR STUDY: DIZZINESS/ HEADACHE COMPARISON: CT BRAIN 12/10/2017, 12/26/2016 TECHNIQUE: Grayscale ultrasound, Doppler velocity and spectra, and color Doppler images acquired of the extra-cranial carotid and vertebral arteries. Images stored on PACS. LIMITATIONS: None. FINDINGS: RIGHT CAROTID CCA Velocities: Within normal limits. ICA Velocities Peak systolic 0.48 m/s. End diastolic 0.21 m/s. Proximal ICA/CCA peak systolic ratio 0.86. Spectra normal. No significant plaque. LEFT CAROTID CCA Velocities: Within normal limits. ICA Velocities Peak systolic 0.40 m/s. End diastolic 0.16 m/s. Proximal ICA/CCA peak systolic ratio 1.6. Spectra normal. No significant plaque. VERTEBRAL ARTERIES: Antegrade flow. Normal waveforms. SUBCLAVIAN ARTERIES: Not evaluated. OTHER: No other significant finding. IMPRESSION: NO HEMODYNAMICALLY SIGNIFICANT STENOSIS. COMMENT: Quality ID #[id number]: Velocity criteria are extrapolated from the diameter data as defined by t he Society of Radiologists in Ultrasound Consensus Conference. Radiology 2003: 229; 340-346. TECHNICAL DOCUMENTATION: JOB ID: [id number] [employer]- All Rights Reserved Reading location - IP/workstation name: [facility] [email or web address]
== END ==
LOC: SP 10:34
PROVIDERS: ATTEND Registered Nurse
DX: I10 Essential (primary) hypertension (principal); R42 Dizziness and giddiness; R51 Headache
CPT/HCPCS: 93880

== ENCOUNTER 2018-01-06 10:04 | Emergency (ER) | payer MEDICAID ==
[2018-01-06] MEDS ORDERED: ACETAMINOPHEN 325 MG TABLET PO ONE (10:33)
--- NOTE | 2018-01-06 10:35 | ER Document Report ---
ED Medical Screen (RME) - General Chief Complaint: Abdominal Pain Stated Complaint: LOWER BACK/STOMACH PAIN Time Seen by Provider: 01/06/18 10:28 Notes: RAPID MEDICAL EVALUATION DISCLOSURE I have seen this patient as part of a Rapid Medical Evaluation and, if applicable, placed any initially appropriate orders. The patient will be seen and fully evaluated, including a full history and physical exam, by a provider ( in Main ED or Fast Track) when a room becomes available. 47-year-old female sent here by the surgeon Dr. Lopez for urinary retention. She had a normal colonoscopy yesterday and throughout the night she has been unable to fully void. She has tried a few times and has been able to excrete a few drops however has had worsening lower abdominal pressure and lower back pain. She has also had a fever and it was 101.1F as of this morning. Exam Mild suprapubic TTP No peritoneal signs TRAVEL OUTSIDE OF THE [place] IN LAST 30 DAYS: No - Related Data Allergies/Adverse Reactions: No Known Allergies Allergy (Verified 01/06/18 10:05) Past Medical History - Past Medical History Cardiac Medical History: Reports: Hx Hypercholesterolemia, Hx Hypertension Neurological Medical History: Reports: Hx Seizures - STATES HAD A SEIZURE IN 2004 Endocrine Medical History: Reports: Hx Diabetes Mellitus Type 2 Renal/ Medical History: Denies: Hx Peritoneal Dialysis GI Medical History: Reports: Hx Gastroesophageal Reflux Disease Psychiatric Medical History: Reports: Hx Depression Past Surgical History: Reports: Hx Hysterectomy - Immunizations Hx Diphtheria, Pertussis, Tetanus Vaccination: No Physical Exam - Vital signs Vitals: Temp Pulse Resp BP Pulse Ox 98.6 F 77 18 155/95 H 99 01/06/18 10:01/06/18 10:01/06/18 10:01/06/18 10:01/06/18 10:09 Course - Vital Signs Vital signs: Temp Pulse Resp BP Pulse Ox 98.6 F 77 18 155/95 H 99 01/06/18 10:01/06/18 10:01/06/18 10:09 01/06/18 10:09 01/06/18 10:09 Doctor's Discharge - Discharge Referrals: FRANCI PONCE, CLOTHES PRESSER [Primary Care Provider] - Follow up as needed
[2018-01-06] MEDS ORDERED: ONDANSETRON 4 MG TAB.RAPDIS PO ONE (10:45)
--- NOTE | 2018-01-06 10:47 | ER Document Report ---
ED Medical Screen (RME) - General Chief Complaint: Abdominal Pain Stated Complaint: LOWER BACK/STOMACH PAIN Time Seen by Provider: 01/06/18 10:28 Notes: RAPID MEDICAL EVALUATION DISCLOSURE I have seen this patient as part of a Rapid Medical Evaluation and, if applicable, placed any initially appropriate orders. The patient will be seen and fully evaluated, including a full history and physical exam, by a provider ( in Main ED or Fast Track) when a room becomes available. Debbie Hester, 47-year-old female here with complaints of epigastric abdominal pain radiating through to the back ongoing for the past day and a half. It started several hours after eating a hamburger. She has had nausea and vomiting but no diarrhea fevers chills. She has a history of gastritis and gallstones. She has tried Bentyl without much relief. No chest pain shortness of breath EXAM Mild epigastric TTP No CVA TTP No peritoneal signs TRAVEL OUTSIDE OF THE [place] IN LAST 30 DAYS: No - Related Data Allergies/Adverse Reactions: No Known Allergies Allergy (Verified 01/06/18 10:05) Home Medications: lisinopril, labetolol, carafate, zantac, zofran, prilosec, metformin, bentyl. Past Medical History - Social History Chew tobacco use (# tins/day): No Frequency of alcohol use: None Drug Abuse: None - Past Medical History Cardiac Medical History: Reports: Hx Hypercholesterolemia, Hx Hypertension Neurological Medical History: Reports: Hx Seizures - STATES HAD A SEIZURE IN 2004 Endocrine Medical History: Reports: Hx Diabetes Mellitus Type 2 Renal/ Medical History: Denies: Hx Peritoneal Dialysis GI Medical History: Reports: Hx Gastroesophageal Reflux Disease Psychiatric Medical History: Reports: Hx Depression Past Surgical History: Reports: Hx Hysterectomy - Immunizations Hx Diphtheria, Pertussis, Tetanus Vaccination: No Physical Exam - Vital signs Vitals: Temp Pulse Resp BP Pulse Ox 98.6 F 77 18 155/95 H 99 01/06/18 10:09 01/06/18 10:01/06/18 10:09 01/06/18 10:09 01/06/18 10:09 Course - Vital Signs Vital signs: Temp Pulse Resp BP Pulse Ox 98.6 F 77 18 155/95 H 99 01/06/18 10:09 01/06/18 10:09 01/06/18 10:09 01/06/18 10:09 01/06/18 10:09 Doctor's Discharge - Discharge Referrals: FRANCI PONCE, RESIDENTIAL TEAM LEADER [Primary Care Provider] - Follow up as needed
[2018-01-06 11:34] LABS: ABSOLUTE BASOPHILS # (AUTO) 0.1 10^3/uL (0.0-0.2); ABSOLUTE LYMPHOCYTES (AUTO) 1.4 10^3/uL (0.5-4.7); ABSOLUTE MONOCYTES (AUTO) 0.6 10^3/uL (0.1-1.4); ABSOLUTE NEUT (AUTO) 8.9 10^3/uL (1.7-8.2); BASOPHILS % (AUTO) 0.6 % (0-2); EOSINOPHILS % (AUTO) 0.3 % (0-6); HEMATOCRIT 37.5 % (36.0-47.0); HEMOGLOBIN 12.5 g/dL (12.0-15.5); LYMPHOCYTES % (AUTO) 13.1 % (13-45); MEAN CORPUSCULAR HEMOGLOBIN 25.1 pg (27.0-33.4); MEAN CORPUSCULAR HGB CONC 33.2 g/dL (32.0-36.0); MEAN CORPUSCULAR VOLUME 76 fl (80-97); MONOCYTES % (AUTO) 5.4 % (3-13); PLATELET COUNT 573 10^3/uL (150-450); RED BLOOD COUNT 4.96 10^6/uL (3.72-5.28); RED CELL DISTRIBUTION WIDTH 15.8 % (11.5-14.0); SEGMENTED NEUTROPHILS % (AUTO) 80.6 % (42-78); TOTAL CELLS COUNTED % (AUTO) 100 %
[2018-01-06 11:41] LABS: APPEARANCE,URINE CLEAR; BILIRUBIN,URINE NEGATIVE (NEGATIVE); COLOR,URINE YELLOW; GLUCOSE, URINE NEGATIVE (NEGATIVE); KETONES,URINE NEGATIVE (NEGATIVE); LEUKOCYTE ESTERASE,URINE NEGATIVE (NEGATIVE); NITRITE,URINE NEGATIVE (NEGATIVE); PROTEIN,URINE 30 mg/dL (NEGATIVE); URINE SPECIFIC GRAVITY 1.024
[2018-01-06 11:55] LABS: ALANINE AMINOTRANSFERASE 27 U/L (9-52); ALBUMIN 4.1 g/dL (3.5-5.0); ALKALINE PHOSPHATASE 85 U/L (38-126); ANION GAP 12 (5-19); ASPARTATE AMINO TRANSFERASE 20 U/L (14-36); BILIRUBIN,DIRECT 0.3 mg/dL (0.0-0.4); BILIRUBIN,TOTAL 0.5 mg/dL (0.2-1.3); BLOOD UREA NITROGEN 15 mg/dL (7-20); CALCIUM 9.7 mg/dL (8.4-10.2); CARBON DIOXIDE 29 mmol/L (22-30); CHLORIDE 101 mmol/L (98-107); GLUCOSE 131 mg/dL (75-110); LIPASE 145.6 U/L (23-300); POTASSIUM 4.1 mmol/L (3.6-5.0); SODIUM 141.9 mmol/L (137-145); TOTAL PROTEIN 7.6 g/dL (6.3-8.2)
[2018-01-06] MEDS ORDERED: LIDOCAINE 2% VISCOUS SOLN 20 ML UDCUP PO ONE (13:41)
[2018-01-06] MEDS ORDERED: MAG HYDROX/AL HYDROX/SIMETH SUSP 30 ML UDCUP PO ONE (13:41)
[2018-01-06] MEDS ORDERED: METOCLOPRAMIDE HCL ORAL SOLN 10 MG/10 ML UDCUP PO ONE (13:41)
--- NOTE | 2018-01-06 13:45 | ER Document Report ---
ED GI/ - General Chief Complaint: Abdominal Pain Stated Complaint: LOWER BACK/STOMACH PAIN Time Seen by Provider: 01/06/18 10:28 Mode of Arrival: Ambulatory Information source: Patient TRAVEL OUTSIDE OF THE [place] IN LAST 30 DAYS: No - HPI Patient complains to provider of: Abdominal pain Quality of pain: Sharp Severity at maximum: Moderate Severity in ED: Moderate Location: Epigastric Associated symptoms: Chest pain, Nausea Exacerbated by: Food Relieved by: Denies Similar symptoms previously: Yes Notes: 01/06/18 13:43 Patient is a 47-year-old female presenting to the emergency room complaining of epigastric abdominal pain that radiates up into her chest and straight into her back, symptoms started around 2 AM, she was already awake at the time before the symptoms started, she reports some nausea and vomiting, denies a fever, history of similar 2 months prior and was diagnosed with gallstones, symptoms started after eating a burger - Related Data Allergies/Adverse Reactions: No Known Allergies Allergy (Verified 01/06/18 10:05) Home Medications: lisinopril, labetolol, carafate, zantac, zofran, prilosec, metformin, bentyl. Past Medical History - General Information source: Patient - Social History Smoking Status: Never Smoker Chew tobacco use (# tins/day): No Frequency of alcohol use: None Drug Abuse: None Family History: None, Reviewed & Not Pertinent, CAD, DM, Hyperlipidemia, Hypertension, Malignancy - Maternal grandfather had stomach cancer Patient has suicidal ideation: No Patient has homicidal ideation: No - Past Medical History Cardiac Medical History: Reports: Hx Hypercholesterolemia, Hx Hypertension Neurological Medical History: Reports: Hx Seizures - STATES HAD A SEIZURE IN 2004 Endocrine Medical History: Reports: Hx Diabetes Mellitus Type 2 Renal/ Medical History: Denies: Hx Peritoneal Dialysis GI Medical History: Reports: Hx Gastroesophageal Reflux Disease Psychiatric Medical History: Reports: Hx Depression Past Surgical History: Reports: Hx Hysterectomy - Immunizations Hx Diphtheria, Pertussis, Tetanus Vaccination: No Review of Systems - Review of Systems Constitutional: No symptoms reported EENT: No symptoms reported Cardiovascular: No symptoms reported Respiratory: No symptoms reported Gastrointestinal: See HPI Genitourinary: No symptoms reported Female Genitourinary: No symptoms reported Musculoskeletal: No symptoms reported Skin: No symptoms reported Hematologic/Lymphatic: No symptoms reported Neurological/Psychological: No symptoms reported Physical Exam - Vital signs Vitals: Temp Pulse Resp BP Pulse Ox 98.6 F 77 18 155/95 H 99 01/06/18 10:09 01/06/18 10:09 01/06/18 10:09 01/06/18 10:09 01/06/18 10:09 Interpretation: Normal - General General appearance: Appears well, Alert - HEENT Head: Normocephalic, Atraumatic Eyes: Normal Pupils: PERRL - Respiratory Respiratory status: No respiratory distress Chest status: Nontender Breath sounds: Normal Chest palpation: Normal - Cardiovascular Rhythm: Regular Heart sounds: Normal auscultation Murmur: No - Abdominal Inspection: Normal Distension: No distension Bowel sounds: Normal Tenderness: Tender - epigastric Organomegaly: No organomegaly - Back Back: Normal, Nontender - Extremities General upper extremity: Normal inspection, Nontender, Normal color, Normal ROM , Normal temperature General lower extremity: Normal inspection, Nontender, Normal color, Normal ROM , Normal temperature, Normal weight bearing. No: Holly's sign - Neurological Neuro grossly intact: Yes Cognition: Normal Orientation: AAOx4 [place] Coma Scale Eye Opening: Spontaneous [place]op[place] Coma Scale Verbal: Oriented Gopi Coma Scale Motor: Obeys Commands Gopi Coma Scale Total: 15 Speech: Normal Motor strength normal: LUE, RUE, LLE, RLE Sensory: Normal - Psychological Associated symptoms: Normal affect, Normal mood - Skin Skin Temperature: Warm Skin Moisture: Dry Skin Color: Normal Course - Re-evaluation Re-evalutation: 01/06/18 17:41 Patient resting comfortably, talking on cell phone, reports symptoms are improved, lab and imaging findings were discussed at bedside which are unremarkable, she will be discharged with prescription for Pepcid and advised to follow-up with both primary care and gastroenterology, or return if symptoms worsen, patient acknowledges understanding and agreement with this plan - Vital Signs Vital signs: Temp Pulse Resp BP Pulse Ox 98.6 F 77 18 155/95 H 99 01/06/18 10:09 01/06/18 10:09 01/06/18 10:09 01/06/18 10:09 01/06/18 10:09 - Laboratory Result Diagrams: 01/06/18 11:15 01/06/18 11:15 Laboratory results interpreted by me: 01/06/18 01/06/18 01/06/18 11:15 11:15 11:15 WBC 11.0 H MCV 76 L MCH 25.1 L RDW 15.8 H Plt Count 573 H Seg Neutrophils % 80.6 H Absolute Neutrophils 8.9 H Glucose 131 H Urine Protein 30 H Urine Urobilinogen 4.0 H - Diagnostic Test Radiology reviewed: Image reviewed, Reports reviewed - EKG Interpretation by Me EKG shows normal: Sinus rhythm Rate: Normal Rhythm: NSR Discharge - Discharge Clinical Impression: Abdominal pain Qualifiers: Abdominal location: epigastric Qualified Code(s): R10.13 - Epigastric pain Chest pain Qualifiers: Chest pain type: unspecified Qualified Code(s): R07.9 - Chest pain, unspecified Condition: Stable Disposition: HOME, SELF-CARE Instructions: Abdominal Pain ([facility]), Chest Pain of Unclear Cause ([facility]) Additional Instructions: Follow up with your primary care provider in one to 2 days. Return to the emergency room immediately if symptoms worsen or any additional concerns. Prescriptions: Famotidine [Pepcid 20 mg Tablet] 20 mg PO BID #60 tablet Referrals: [facility] [Primary Care Provider] - Follow up as needed
[2018-01-06] MEDS ORDERED: MORPHINE SULFATE 10 MG/ML INJ IV ONE (14:48)
--- NOTE | 2018-01-06 16:02 | RADIOLOGY REPORT (SQ) ---
EXAM DESCRIPTION: CT ABD/PELVIS WITH IV ONLY COMPLETED DATE/TIME: 01/06/2018 3:39 pm REASON FOR STUDY: abd pain COMPARISON: None. TECHNIQUE: CT scan of the abdomen and pelvis performed using helical scanning technique with dynamic intravenous contrast injection. No oral contrast. Images reviewed with lung, soft tissue, and bone windows. Reconstructed coronal and sagittal MPR images reviewed. Delayed images for evaluation of the urinary system also acquired. All images stored on PACS. All CT scanners at this facility use dose modulation, iterative reconstruction, and/or weight based d osing when appropriate to reduce radiation dose to as low as reasonably achievable (ALARA). [facility]: Dose Right [facility]: CareDose [facility]: Dose Right [facility]: Teradose 4D [facility]: PodTech CONTRAST TYPE AND DOSE: contrast/concentration: Isovue 370.00 mg/ml; Total Contrast Delivered: 100.0 ml; Total Saline Delivered: 45.0 ml 100 cc Isovue 370- low osmolar. RENAL FUNCTION: Creatinine 0.73 RADIATION DOSE: CT Rad equipment meets quality standard of care and radiation dose reduction techniq ues were employed. CTDIvol: 20.5 - 21.1 mGy. DLP: 2031 mGy-cm.. LIMITATIONS: None. FINDINGS: LOWER CHEST: No significant findings. No nodules or infiltrates. LIVER: Normal size. No masses. No ductal dilatation. SPLEEN: Normal size. No focal lesions. PANCREAS: No masses. No significant calcifications. No adjacent inflammation or peripancreatic fluid collections. Pancreatic duct not dilated. GALLBLADDER: No identified stones by CT criteria. No inflammatory changes to suggest cholecystitis. ADRENAL GLANDS: No significant masses or asymmetry. RIGHT KIDNEY AND URETER: No solid masses. No significant calcifications. No hydronephrosis or hyd roureter. LEFT KIDNEY AND URETER: No solid masses. No significant calcifications. No hydronephrosis or hydr oureter. AORTA AND VESSELS: No aneurysm. No dissection. Renal arteries, SMA, celiac without stenosis. RETROPERITONEUM: No retroperitoneal adenopathy, hemorrhage or masses. BOWEL AND PERITONEAL CAVITY: No masses or inflammatory changes. No free fluid or peritoneal masses. APPENDIX: Normal. PELVIS: No mass. No free fluid. Normal bladder. ABDOMINAL WALL: No masses. No hernias. BONES: No significant or acute findings. OTHER: No other significant finding. IMPRESSION: NO SIGNIFICANT OR ACUTE FINDING IN THE ABDOMEN OR PELVIS ON CT SCAN WITH IV CONTRAST. TECHNICAL DOCUMENTATION: JOB ID: [id number] Quality ID # [id number]: Final reports with documentation of one or more dose reduction techniques (e.g., Au tomated exposure control, adjustment of the mA and/or kV according to patient size, use of iterative reconstruction technique) 2010 [employer]- All Rights Reserved Reading location - IP/workstation name: [email or web address]
[2018-01-06 18:26] VITALS: BP 137/72
--- NOTE | 2018-01-06 22:56 | EKG REPORT ---
SEVERITY:- ABNORMAL ECG - SINUS RHYTHM LEFT VENTRICULAR HYPERTROPHY : Confirmed by: Kartik Chapman 06-Jan-2018 22:56:09
== END 2018-01-06 18:26 | disposition home or self-care (01) ==
LOC: ER 10:04
DX: K21.9 Gastro-esophageal reflux disease without esophagitis (principal); R10.13 Epigastric pain; R07.9 Chest pain, unspecified; R11.2 Nausea with vomiting, unspecified; I10 Essential (primary) hypertension; E11.9 Type 2 diabetes mellitus without complications; Z79.84 Long term (current) use of oral hypoglycemic drugs; Z79.899 Other long term (current) drug therapy
CPT/HCPCS: 93005; 99284; 96374; 36415; 87086; 83690; 85025; 80053; 81001; 84484; 74177; 93010; J3490 ×4; S0119; J2270

== ENCOUNTER 2018-07-08 23:01 | Emergency (ER) | payer MEDICAID ==
[2018-07-09] MEDS ORDERED: NORMAL SALINE 1000 ML 1,000 ML IV ONE (01:34)
[2018-07-09] MEDS ORDERED: ONDANSETRON HCL INJ/PF 4 MG/2 ML SDV IV ONE (01:38)
[2018-07-09 01:56] LABS: ABSOLUTE BASOPHILS # (AUTO) 0.1 10^3/uL (0.0-0.2); ABSOLUTE LYMPHOCYTES (AUTO) 2.2 10^3/uL (0.5-4.7); ABSOLUTE MONOCYTES (AUTO) 0.6 10^3/uL (0.1-1.4); ABSOLUTE NEUT (AUTO) 8.2 10^3/uL (1.7-8.2); BASOPHILS % (AUTO) 0.9 % (0-2); EOSINOPHILS % (AUTO) 0.4 % (0-6); HEMATOCRIT 37.8 % (36.0-47.0); HEMOGLOBIN 12.4 g/dL (12.0-15.5); LYMPHOCYTES % (AUTO) 19.4 % (13-45); MEAN CORPUSCULAR HEMOGLOBIN 24.9 pg (27.0-33.4); MEAN CORPUSCULAR HGB CONC 32.8 g/dL (32.0-36.0); MEAN CORPUSCULAR VOLUME 76 fl (80-97); MONOCYTES % (AUTO) 5.5 % (3-13); PLATELET COUNT 536 10^3/uL (150-450); RED BLOOD COUNT 4.97 10^6/uL (3.72-5.28); RED CELL DISTRIBUTION WIDTH 14.7 % (11.5-14.0); SEGMENTED NEUTROPHILS % (AUTO) 73.8 % (42-78); TOTAL CELLS COUNTED % (AUTO) 100 %; WHITE BLOOD COUNT 11.1 10^3/uL (4.0-10.5)
[2018-07-09 02:10] LABS: ALANINE AMINOTRANSFERASE 28 U/L (9-52); ALBUMIN 4.6 g/dL (3.5-5.0); ALKALINE PHOSPHATASE 82 U/L (38-126); ANION GAP 8 (5-19); ASPARTATE AMINO TRANSFERASE 32 U/L (14-36); BILIRUBIN,DIRECT 0.3 mg/dL (0.0-0.4); BILIRUBIN,TOTAL 0.5 mg/dL (0.2-1.3); BLOOD UREA NITROGEN 14 mg/dL (7-20); CALCIUM 9.6 mg/dL (8.4-10.2); CARBON DIOXIDE 30 mmol/L (22-30); CHLORIDE 101 mmol/L (98-107); GLUCOSE 155 mg/dL (75-110); LIPASE 128.7 U/L (23-300); POTASSIUM 3.7 mmol/L (3.6-5.0); SODIUM 138.7 mmol/L (137-145); TOTAL PROTEIN 8.5 g/dL (6.3-8.2)
--- NOTE | 2018-07-09 03:00 | RADIOLOGY REPORT (SQ) ---
EXAM DESCRIPTION: US ABDOMEN LIMITED COMPLETED DATE/TME: 07/09/2018 00:00 CLINICAL HISTORY: 48 years Female, hx of gallbladder issues, abd/back pain Comparison: CT, 01/06/2018. LIMITATIONS: None. FINDINGS: Cholelithiasis, negative sonographic Lopez's test, moderate hepatic steatosis, a 0.2-cm diameter common bile duct, no intrahepatic ductal dilation, 11.9-cm right kidney with possible punctate nephrolithiasis, partially obscured pancreas, visualized vasculature/abdominal aorta, and no significant ascites appear otherwise unremarkable. IMPRESSION: No acute findings. Cholelithiasis. Hepatic steatosis. Possible punctate right nephrolithiasis.
[2018-07-09 03:19] LABS: APPEARANCE,URINE SLIGHTLY-CLOUDY; BILIRUBIN,URINE NEGATIVE (NEGATIVE); COLOR,URINE YELLOW; GLUCOSE, URINE NEGATIVE (NEGATIVE); KETONES,URINE TRACE mg/dL (NEGATIVE); LEUKOCYTE ESTERASE,URINE NEGATIVE (NEGATIVE); NITRITE,URINE NEGATIVE (NEGATIVE); PROTEIN,URINE 30 mg/dL (NEGATIVE); URINE SPECIFIC GRAVITY 1.026
[2018-07-09] MEDS ORDERED: KETOROLAC TROMETHAMINE INJ/PF 30 MG/1 ML SDV IV ONE (03:41)
[2018-07-09] MEDS ORDERED: PROMETHAZINE HCL INJ 25 MG/1 ML VIAL IV ONE (04:41)
[2018-07-09] MEDS ORDERED: SUCRALFATE SUSP 1 GM/10 ML UDCUP PO ONE (04:42)
[2018-07-09] MEDS ORDERED: FAMOTIDINE INJ/PF 20 MG/2 ML SDV IV ONE (04:42)
[2018-07-09] MEDS ORDERED: HYDROMORPHONE HCL INJ/PF 2 MG/ML AMPULE IV ONE (04:42)
--- NOTE | 2018-07-09 04:45 | ER Document Report ---
ED General - General Chief Complaint: Upper Abdominal Pain Stated Complaint: STOMACH PAINS Time Seen by Provider: 07/09/18 03:39 Notes: Patient is a 48-year-old female presents to the emergency department complaining of generalized epigastric and left and right upper quadrant pain starting around 1600 hrs. yesterday. Patient states she has vomited "a lot." Patient denies any diarrhea or fever. Patient states she does have a history of gallstones and this pain feels like her gallstone pain. Past medical history: Hypertension, diabetes, GERD Medication: Labetalol, metformin, clonidine, Lexapro, Ativan, vitamin D, calcium, omeprazole Allergies: None Surgical history: Hysterectomy TRAVEL OUTSIDE OF THE [place] IN LAST 30 DAYS: No - Related Data Allergies/Adverse Reactions: No Known Allergies Allergy (Verified 07/08/18 23:02) Past Medical History - General Information source: Patient - Social History Smoking Status: Never Smoker Family History: None, Reviewed & Not Pertinent, CAD, DM, Hyperlipidemia, Hypertension, Malignancy - Maternal grandfather had stomach cancer Patient has suicidal ideation: No Patient has homicidal ideation: No - Past Medical History Cardiac Medical History: Reports: Hx Hypercholesterolemia, Hx Hypertension Neurological Medical History: Reports: Hx Seizures - STATES HAD A SEIZURE IN 2004 Endocrine Medical History: Reports: Hx Diabetes Mellitus Type 2 Renal/ Medical History: Denies: Hx Peritoneal Dialysis GI Medical History: Reports: Hx Gastroesophageal Reflux Disease Psychiatric Medical History: Reports: Hx Depression Past Surgical History: Reports: Hx Hysterectomy - Immunizations Hx Diphtheria, Pertussis, Tetanus Vaccination: No Review of Systems - Review of Systems Constitutional: See HPI EENT: No symptoms reported Cardiovascular: denies: Chest pain, Palpitations, Dyspnea Respiratory: No symptoms reported Gastrointestinal: See HPI Genitourinary: See HPI Female Genitourinary: denies: Vaginal discharge, Vaginal odor Musculoskeletal: No symptoms reported Skin: No symptoms reported Hematologic/Lymphatic: No symptoms reported Neurological/Psychological: No symptoms reported Physical Exam - Vital signs Vitals: Temp Pulse Resp BP Pulse Ox 98.2 F 82 20 172/98 H 97 07/08/18 23:29 07/08/18 23:29 07/08/18 23:29 07/08/18 23:29 07/08/18 23:29 - Notes Notes: GENERAL: Alert, interacts well. No acute distress. HEAD: Normocephalic, atraumatic. EYES: Pupils equal, round, and reactive to light. Extraocular movements intact. ENT: Oral mucosa moist, tongue midline. NECK: Full range of motion. Supple. Trachea midline. LUNGS: Clear to auscultation bilaterally, no wheezes, rales, or rhonchi. No respiratory distress. HEART: Regular rate and rhythm. No murmur ABDOMEN: Obese soft. Non-distended. Bowel sounds present in all 4 quadrants. Generalized right and left upper quadrant pain, generalized epigastric pain. No right lower abdominal pain, no McBurney sign, no left lower abdominal pain. EXTREMITIES: Moves all 4 extremities spontaneously. No edema, normal radial and dorsalis pedis pulses bilaterally. No cyanosis. BACK: no cervical, thoracic, lumbar midline tenderness. No saddle anesthesia, normal distal neurovascular exam. No CVA tenderness bilaterally NEUROLOGICAL: Alert and oriented x3. Normal speech. cranial nerves II through XII grossly intact PSYCH: Normal affect, normal mood. SKIN: Warm, dry, normal turgor. No rashes or lesions noted. Course - Re-evaluation Re-evalutation: 07/09/18 04:45 Upon my examination patient states that she has vomited 3 times since Zofran administration. Discussed use of Phenergan. Patient is requesting more pain management at this time. States the Toradol did not help at all. Patient does states she does have a history of GERD and takes omeprazole. Discussed use of Carafate and Pepcid. Patient agreeable to treatment plan at this time. 07/09/18 05:31 Patient's labs show leukocytosis of 11.1 likely due to her vomiting. No signs of anemia or electrolyte abnormalities. No elevation in the patient's lipase. Her specific gravity was 1.026 on urine with no signs of urinary tract infection. She was treated with normal saline solution in the emergency department. Patient's ultrasound does show signs of cholelithiasis with no signs of cholecystitis. After treatments in the emergency department patient has no longer vomited and states her pain is overall better. Discussed elective outpatient removal of her gallbladder and follow-up with surgery. Patient voices understanding and is stable for discharge. - Vital Signs Vital signs: Temp Pulse Resp BP Pulse Ox 98.2 F 82 20 172/98 H 97 07/08/18 23:29 07/08/18 23:29 07/08/18 23:29 07/08/18 23:29 07/08/18 23:29 - Laboratory Result Diagrams: 07/09/18 01:47 07/09/18 01:47 Laboratory results interpreted by me: 07/09/18 07/09/18 07/09/18 01:47 01:47 02:50 WBC 11.1 H MCV 76 L MCH 24.9 L RDW 14.7 H Plt Count 536 H Glucose 155 H Total Protein 8.5 H Urine Protein 30 H Urine Ketones TRACE H Urine Urobilinogen 4.0 H Discharge - Discharge Clinical Impression: Cholelithiasis Qualifiers: Cholelithiasis location: other site Biliary obstruction: without biliary obstruction Qualified Code(s): K80.80 - Other cholelithiasis without obstruction Condition: Stable Disposition: HOME, SELF-CARE Instructions: Gallbladder Disease ([facility]) Additional Instructions: As we discussed you have been seen and treated in the emergency department for your generalized right upper and epigastric abdominal pain. Your ultrasound shows signs of gallstones. At this time the gallstones are not infected so there is no need to emergently have you follow-up with surgery for removal of your gallbladder. I am going to give you phone numbers for the surgeon to e lectively have your gallbladder taken out. Your labs are otherwise unremarkable. Please make sure you follow-up with your primary care provider and inevitably the surgical list I have provided with you for continued care. Please return to the emergency room for any other concerning symptoms. Prescriptions: Morphine Sulfate [Morphine Ir 15 Mg Tablet] 15 mg PO Q4H PRN #12 tablet PRN Reason: Promethazine HCl [Phenergan 25 mg Tablet] 1 - 2 tab PO Q6H PRN #15 tablet PRN Reason: Forms: Elevated Blood Pressure Referrals: [facility] NP [Primary Care Provider] - Follow up as needed JASS PERRIN MD [ACTIVE STAFF] - Follow up as needed
[2018-07-09 06:28] VITALS: BP 124/65
== END 2018-07-09 05:52 | disposition home or self-care (01) ==
LOC: ER 23:01
DX: K80.80 Other cholelithiasis without obstruction (principal); R10.10 Upper abdominal pain, unspecified; R10.13 Epigastric pain; R10.84 Generalized abdominal pain; E78.00 Pure hypercholesterolemia, unspecified; I10 Essential (primary) hypertension; E11.9 Type 2 diabetes mellitus without complications; Z90.710 Acquired absence of both cervix and uterus
CPT/HCPCS: 96374; 99284; 96361; 96375; 36415; 83690; 85025; 80053; 81001; 76705; J1885; J1170; J3490; J2550; J2405; J7030; S0028

== ENCOUNTER 2018-10-07 20:54 | Emergency (ER) | payer MEDICAID ==
[2018-10-07] MEDS ORDERED: ONDANSETRON HCL INJ/PF 4 MG/2 ML SDV IV ONE (22:01)
--- NOTE | 2018-10-07 22:02 | ER Document Report ---
ED Medical Screen (RME) - General Chief Complaint: Abdominal Pain Stated Complaint: BACK, STOMACH AND CHEST PAIN Time Seen by Provider: 10/07/18 21:57 Primary Care Provider: [facility] [Primary Care Provider] - Follow up as needed Mode of Arrival: Ambulatory Information source: Patient Notes: Patient is a 48-year-old female who presents the emergency department with chief complaint of epigastric and right upper quadrant pain that radiates around to her back. She reports pain started at approximately 3 PM this afternoon. Patient reports history of gallstones and issues with her gallbladder but states that it is never been bad enough for surgical removal. Patient states that she has associated nausea but denies any vomiting, diarrhea or fever. Exam: Tenderness to palpation to epigastric region and right upper quadrant. I have greeted and performed a rapid initial assessment of this patient. A comprehensive ED assessment and evaluation of the patient, analysis of test results and completion of the medical decision making process will be conducted by additional ED providers. Dictation of this chart was performed using voice recognition software; therefore, there may be some unintended grammatical errors. TRAVEL OUTSIDE OF THE [place] IN LAST 30 DAYS: No - Related Data Allergies/Adverse Reactions: No Known Allergies Allergy (Verified 07/08/18 23:02) Past Medical History - Past Medical History Cardiac Medical History: Reports: Hx Hypercholesterolemia, Hx Hypertension Neurological Medical History: Reports: Hx Seizures - STATES HAD A SEIZURE IN 2004 Endocrine Medical History: Reports: Hx Diabetes Mellitus Type 2 Renal/ Medical History: Denies: Hx Peritoneal Dialysis GI Medical History: Reports: Hx Gastroesophageal Reflux Disease Psychiatric Medical History: Reports: Hx Depression Past Surgical History: Reports: Hx Hysterectomy - Immunizations Hx Diphtheria, Pertussis, Tetanus Vaccination: No Physical Exam - Vital signs Vitals: Temp Pulse Resp BP Pulse Ox 98.2 F 83 20 142/96 H 96 10/07/18 21:21 10/07/18 21:21 10/07/18 21:21 10/07/18 21:21 10/07/18 21:21 Course - Vital Signs Vital signs: Temp Pulse Resp BP Pulse Ox 98.2 F 83 20 142/96 H 96 10/07/18 21:21 10/07/18 21:21 10/07/18 21:21 10/07/18 21:21 10/07/18 21:21 Doctor's Discharge - Discharge Referrals: [facility], OB/[facility] [Primary Care Provider] - Follow up as needed
--- NOTE | 2018-10-07 23:38 | RADIOLOGY REPORT (SQ) ---
EXAM DESCRIPTION: US ABDOMEN LIMITED COMPLETED DATE/TME: 10/07/2018 22:00 CLINICAL HISTORY: RUQ pain COMPARISON: 07/09/2018 TECHNIQUE: Real-time sonographic images of the right upper abdomen were obtained using a curved multihertz transducer. FINDINGS: Pancreas: The visualized portions of the pancreas are unremarkable. Vascular: The visualized portions of the aorta and IVC are unremarkable. Liver: The liver has normal contour and increased echogenicity. Hepatopedal flow in the portal vein. Findings confirmed with color and spectral Doppler imaging. The common bile duct measures 0.4 cm. Gallbladder: Echogenic shadowing structures in the gallbladder lumen again identified. Normal gallbladder wall thickness. Negative reported sonographic Lopez sign. No pericholecystic fluid. Right Kidney: The right kidney measures 11.9 cm in length. No hydronephrosis, solid renal mass, or shadowing calculi. IMPRESSION: 1. Cholelithiasis without other sonographic evidence of acute cholecystitis. 2. Hepatic steatosis.
[2018-10-08 00:22] LABS: ABSOLUTE EOSINOPHILS # (AUTO) 0.1 10^3/uL (0.0-0.6); ABSOLUTE LYMPHOCYTES (AUTO) 3.5 10^3/uL (0.5-4.7); ABSOLUTE MONOCYTES (AUTO) 0.9 10^3/uL (0.1-1.4); ABSOLUTE NEUT (AUTO) 4.6 10^3/uL (1.7-8.2); BASOPHILS % (AUTO) 0.5 % (0-2); EOSINOPHILS % (AUTO) 1.1 % (0-6); HEMATOCRIT 36.9 % (36.0-47.0); HEMOGLOBIN 12.2 g/dL (12.0-15.5); MEAN CORPUSCULAR HEMOGLOBIN 25.1 pg (27.0-33.4); MEAN CORPUSCULAR HGB CONC 33.2 g/dL (32.0-36.0); MEAN CORPUSCULAR VOLUME 76 fl (80-97); MONOCYTES % (AUTO) 9.9 % (3-13); PLATELET COUNT 521 10^3/uL (150-450); RED BLOOD COUNT 4.88 10^6/uL (3.72-5.28); RED CELL DISTRIBUTION WIDTH 15.6 % (11.5-14.0); SEGMENTED NEUTROPHILS % (AUTO) 50.5 % (42-78); TOTAL CELLS COUNTED % (AUTO) 100 %; WHITE BLOOD COUNT 9.1 10^3/uL (4.0-10.5)
[2018-10-08 00:37] LABS: ALANINE AMINOTRANSFERASE 22 U/L (9-52); ALBUMIN 4.1 g/dL (3.5-5.0); ALKALINE PHOSPHATASE 70 U/L (38-126); ANION GAP 10 (5-19); ASPARTATE AMINO TRANSFERASE 22 U/L (14-36); BILIRUBIN,DIRECT 0.3 mg/dL (0.0-0.4); BILIRUBIN,TOTAL 0.4 mg/dL (0.2-1.3); BLOOD UREA NITROGEN 16 mg/dL (7-20); CALCIUM 10.4 mg/dL (8.4-10.2); CARBON DIOXIDE 31 mmol/L (22-30); CHLORIDE 100 mmol/L (98-107); GLUCOSE 109 mg/dL (75-110); LIPASE 211.6 U/L (23-300); POTASSIUM 3.5 mmol/L (3.6-5.0); SODIUM 140.8 mmol/L (137-145); TOTAL PROTEIN 7.9 g/dL (6.3-8.2)
[2018-10-08] MEDS ORDERED: KETOROLAC TROMETHAMINE INJ/PF 30 MG/1 ML SDV IV ONE (00:40)
[2018-10-08] MEDS ORDERED: MORPHINE SULFATE 10 MG/ML INJ IV PRN (00:51)
--- NOTE | 2018-10-08 01:56 | ER Document Report ---
ED General - General Chief Complaint: Abdominal Pain Stated Complaint: BACK, STOMACH AND CHEST PAIN Time Seen by Provider: 10/07/18 21:57 Primary Care Provider: FRANCI PONCE, WEB PRESSMAN [Primary Care Provider] - Follow up as needed Mode of Arrival: Ambulatory Notes: Patient is a 48-year-old female who presents the emergency department with chief complaint of epigastric and right upper quadrant pain that radiates around to her back. She reports pain started at approximately 3 PM this afternoon. Regards it as being a moderate to severe, throbbing, constant pain. Started after eating buttered popcorn. Nothing is improved pain since onset. Patient reports history of gallstones and issues with her gallbladder but states that it is never been bad enough for surgical removal. Patient states that she has associated nausea but denies any vomiting, diarrhea or fever. Denies any chest pain or shortness of breath. TRAVEL OUTSIDE OF THE [place] IN LAST 30 DAYS: No - Related Data Allergies/Adverse Reactions: No Known Allergies Allergy (Verified 07/08/18 23:02) Past Medical History - General Information source: Patient - Social History Smoking Status: Never Smoker Frequency of alcohol use: None Drug Abuse: None Family History: None, Reviewed & Not Pertinent, CAD, DM, Hyperlipidemia, Hypertension, Malignancy - Maternal grandfather had stomach cancer Patient has suicidal ideation: No Patient has homicidal ideation: No - Past Medical History Cardiac Medical History: Reports: Hx Hypercholesterolemia, Hx Hypertension Neurological Medical History: Reports: Hx Seizures - STATES HAD A SEIZURE IN 2004 Endocrine Medical History: Reports: Hx Diabetes Mellitus Type 2 Renal/ Medical History: Denies: Hx Peritoneal Dialysis GI Medical History: Reports: Hx Gastroesophageal Reflux Disease Psychiatric Medical History: Reports: Hx Depression Past Surgical History: Reports: Hx Hysterectomy - Immunizations Hx Diphtheria, Pertussis, Tetanus Vaccination: No Review of Systems - Review of Systems Notes: Constitutional: Negative for fever. HENT: Negative for sore throat. Eyes: Negative for visual changes. Cardiovascular: Negative for chest pain. Respiratory: Negative for shortness of breath. Gastrointestinal: Positive for upper abdominal pain and nausea Genitourinary: Negative for dysuria. Musculoskeletal: Negative for back pain. Skin: Negative for rash. Neurological: Negative for headaches, weakness or numbness. 10 point ROS negative except as marked above and in HPI. Physical Exam - Vital signs Vitals: Temp Pulse Resp BP Pulse Ox 98.2 F 83 20 142/96 H 96 10/07/18 21:21 10/07/18 21:21 10/07/18 21:21 10/07/18 21:21 10/07/18 21:21 Interpretation: Hypertensive Notes: PHYSICAL EXAMINATION: GENERAL: Well-appearing, well-nourished and in no acute distress. HEAD: Atraumatic, normocephalic. EYES: Pupils equal round and reactive to light, extraocular movements intact, sclera anicteric, conjunctiva are normal. ENT: nares patent, oropharynx clear without exudates. Moist mucous membranes. NECK: Normal range of motion, supple without lymphadenopathy LUNGS: Breath sounds clear to auscultation bilaterally and equal. No wheezes rales or rhonchi. HEART: Regular rate and rhythm without murmurs ABDOMEN: Soft, mild epigastric and right upper quadrant abdominal pain on palpation, normoactive bowel sounds. No guarding, no rebound. No masses appreciated. EXTREMITIES: Normal range of motion, no pitting or edema. No cyanosis. NEUROLOGICAL: No focal neurological deficits. Moves all extremities spontaneously and on command. PSYCH: Normal mood, normal affect. SKIN: Warm, Dry, normal turgor, no rashes or lesions noted. Course - Re-evaluation Re-evalutation: 10/08/18 01:55 Patient presents clinical history and exam most consistent with symptomatic cholelithiasis. Patient has had progressive worsening of right upper quadrant pain worsened by eating but has been able to tolerate some oral intake. Vitals at time of arrival and on multiple reassessments remain non-concerning. Laboratories do not demonstrate a significant leukocytosis, LFT derangements, el evated bilirubin, alkaline phosphatase, or an elevated lipase. A right upper quadrant ultrasound does not demonstrate evidence of acute cholecystitis. Has had complete resolution of her pain here in the emergency department. Patient is able to tolerate oral intake.At this time will discharge with return precautions and follow-up recommendations. Verbal discharge instructions given a the bedside and opportunity for questions given. Medication warnings reviewed. Patient is in agreement with this plan and has verbalized understanding of return precautions and the need for primary care follow-up in the next 24-72 hours. 10/08/18 03:09 - Vital Signs Vital signs: Temp Pulse Resp BP Pulse Ox 98.2 F 83 20 142/96 H 96 10/07/18 21:21 10/07/18 21:21 10/07/18 21:21 10/07/18 21:21 10/07/18 21:21 - Laboratory Result Diagrams: 10/08/18 00:00 10/08/18 00:00 Laboratory results interpreted by me: 10/08/18 10/08/18 00:00 00:00 MCV 76 L MCH 25.1 L RDW 15.6 H Plt Count 521 H Potassium 3.5 L Carbon Dioxide 31 H Calcium 10.4 H - Diagnostic Test Radiology reviewed: Reports reviewed Discharge - Discharge Clinical Impression: Symptomatic cholelithiasis, Upper abdominal pain Condition: Good Disposition: HOME, SELF-CARE Additional Instructions: You have gallstones that are causing your symptoms. Be sure to avoid fat containing foods until you follow-up with a surgeon to have the gallbladder removed as eating these foods will trigger your pain. Please return to the emergency department if you develop a fever greater than 100.4F, persistent vomiting, worsening of your pain, or any other symptoms that are worrisome to you. Referrals: FRANCI PONCE NP [Primary Care Provider] - Follow up as needed DEBBIE BENZ MD [ACTIVE STAFF] - Follow up in 3-5 days
[2018-10-08 02:41] LABS: APPEARANCE,URINE CLEAR; BILIRUBIN,URINE NEGATIVE (NEGATIVE); COLOR,URINE YELLOW; GLUCOSE, URINE NEGATIVE (NEGATIVE); KETONES,URINE NEGATIVE (NEGATIVE); LEUKOCYTE ESTERASE,URINE NEGATIVE (NEGATIVE); NITRITE,URINE NEGATIVE (NEGATIVE); PROTEIN,URINE NEGATIVE (NEGATIVE); URINE SPECIFIC GRAVITY 1.013; UROBILINOGEN,URINE NEGATIVE mg/dL (<2.0)
[2018-10-08 03:55] VITALS: BP 131/82
--- NOTE | 2018-10-08 21:01 | EKG REPORT ---
SEVERITY:- ABNORMAL ECG - SINUS RHYTHM LEFT VENTRICULAR HYPERTROPHY BORDERLINE PROLONGED QT INTERVAL : Confirmed by: Teresa Medina MD 08-Oct-2018 21:00:59
== END 2018-10-08 03:55 | disposition home or self-care (01) ==
LOC: ER 20:54
DX: K80.20 Calculus of gallbladder without cholecystitis without obstruction (principal); R10.13 Epigastric pain; R10.11 Right upper quadrant pain; R11.0 Nausea; I10 Essential (primary) hypertension; E11.9 Type 2 diabetes mellitus without complications; Z87.19 Personal history of other diseases of the digestive system
CPT/HCPCS: 93005; 99284; 96374; 96375; 36415; 83690; 85025; 80053; 81001; 76705; 93010; J1885; J2270; J2405

== ENCOUNTER 2018-10-09 04:17 | Emergency (ER) | payer MEDICAID ==
[2018-10-09] MEDS ORDERED: PROMETHAZINE HCL INJ 25 MG/1 ML VIAL IM ONE (05:25)
[2018-10-09] MEDS ORDERED: MORPHINE SULFATE 10 MG/ML INJ IM ONE (05:25)
--- NOTE | 2018-10-09 05:51 | ER Document Report ---
ED General - General Chief Complaint: Abdominal Pain >50 Stated Complaint: ABDOMINAL PAIN Time Seen by Provider: 10/09/18 05:11 Primary Care Provider: FRANCI PONCE NP [Primary Care Provider] - Follow up as needed Mode of Arrival: Ambulatory Information source: Patient Notes: Patient is a 48-year-old female presenting to the emergency department with complaints of right upper quadrant abdominal pain and nausea. She states she was discharged from this facility yesterday with similar symptoms. Patient reports she was told to follow-up with outpatient surgical team for elective cholecystectomy. Patient reports when she was discharged home they did not send her home with any pain medication. Patient states that her symptoms have not worsened but they have persisted. She denies any fevers. She reports nausea but denies any vomiting or diarrhea. TRAVEL OUTSIDE OF THE [place] IN LAST 30 DAYS: No - Related Data Allergies/Adverse Reactions: No Known Allergies Allergy (Verified 10/09/18 04:29) Past Medical History - General Information source: Patient - Social History Smoking Status: Never Smoker Frequency of alcohol use: None Drug Abuse: None Family History: None, Reviewed & Not Pertinent, CAD, DM, Hyperlipidemia, Hypertension, Malignancy - Maternal grandfather had stomach cancer Patient has suicidal ideation: No Patient has homicidal ideation: No - Past Medical History Cardiac Medical History: Reports: Hx Hypercholesterolemia, Hx Hypertension Neurological Medical History: Reports: Hx Seizures - STATES HAD A SEIZURE IN 2004 Endocrine Medical History: Reports: Hx Diabetes Mellitus Type 2 Renal/ Medical History: Denies: Hx Peritoneal Dialysis GI Medical History: Reports: Hx Gastroesophageal Reflux Disease Psychiatric Medical History: Reports: Hx Depression Past Surgical History: Reports: Hx Hysterectomy - Immunizations Hx Diphtheria, Pertussis, Tetanus Vaccination: No Review of Systems - Review of Systems Constitutional: No symptoms reported. denies: Chills, Fever EENT: No symptoms reported Cardiovascular: No symptoms reported Respiratory: No symptoms reported Gastrointestinal: No symptoms reported, Abdominal pain - RUQ, Nausea. denies: Vomiting, Constipation Genitourinary: No symptoms reported. denies: Dysuria, Frequency, Flank pain Female Genitourinary: No symptoms reported Musculoskeletal: No symptoms reported Skin: No symptoms reported Hematologic/Lymphatic: No symptoms reported Neurological/Psychological: No symptoms reported Physical Exam - Vital signs Vitals: Temp Pulse Resp BP Pulse Ox 97 F L 87 24 H 139/96 H 99 10/09/18 04:28 10/09/18 04:28 10/09/18 04:28 10/09/18 04:28 10/09/18 04:28 - Notes Notes: PHYSICAL EXAMINATION: GENERAL: Well-appearing, well-nourished. HEAD: Atraumatic, normocephalic. EYES: Pupils equal round and reactive to light, extraocular movements intact, conjunctiva are normal. ENT: Nares patent, oropharynx clear without exudates. Moist mucous membranes. NECK: Normal range of motion, supple without lymphadenopathy LUNGS: Breath sounds clear to auscultation bilaterally and equal. No wheezes rales or rhonchi. HEART: Regular rate and rhythm without murmurs ABDOMEN: Soft, nondistended abdomen. Tenderness to palpation to right upper quadrant, negative Lopez sign. No guarding, no rebound. No masses appreciated. Female : No CVAT. Musculoskeletal: Normal range of motion, no pitting or edema. No cyanosis. NEUROLOGICAL: Cranial nerves grossly intact. Normal speech, normal gait. Normal sensory, motor exams PSYCH: Normal mood, normal affect. SKIN: Warm, Dry, normal turgor, no rashes or lesions noted. Course - Re-evaluation Re-evalutation: Patient declining lab work and imaging. Patient states that she just needs pain medication. Will prescribe Phenergan and dicyclomine. Patient has contact information for [facility], she states she is going to call them Wednesday morning to schedule an appointment. But patient's vital signs are within normal limits and patient is stable for discharge. - Vital Signs Vital signs: Temp Pulse Resp BP Pulse Ox 97 F L 87 24 H 139/96 H 99 10/09/18 04:28 10/09/18 04:28 10/09/18 04:28 10/09/18 04:28 10/09/18 04:28 Discharge - Discharge Clinical Impression: Right upper quadrant abdominal pain, Nausea Condition: Stable Disposition: HOME, SELF-CARE Additional Instructions: Gallbladder Disease Your evaluation shows evidence of gallbladder disease. The gallbladder is a pouch under the liver which stores bile. Stones, infection, or irritation of the gallbladder cause attacks of pain. Certain foods -- fats in particular -- may provoke attacks. The usual treatment for gallbladder disease is surgical removal of the gallbladder -- called a cholecystectomy. You will be referred to a physician qualified to advise you on the best treatment for your problem. Hospitalization is not necessary. Take clear liquids only until you are painfree. After that, you should stay on a low-fat diet, with frequent SMALL meals. Call the doctor or return at once if you develop severe pain, repeated vomiting, fever, or jaundice (a yellow color in the skin and whites of the eyes). Please take medications as prescribed. Call the surgical clinic Wednesday to schedule your follow-up as outlined in your previous discharge instructions. Return to the emergency department for any new or worsening symptoms to include severe pain, persistent vomiting, development of fever or yellowing of the skin and whites of her eyes. Prescriptions: Dicyclomine HCl [Bentyl 20 mg Tablet] 20 mg PO QID #20 tablet Promethazine HCl [Phenergan 25 mg Tablet] 1 - 2 tab PO Q6H PRN #15 tablet PRN Reason: Referrals: FRANCI PONCE, BLISTER PACKING MACHINE TENDER [Primary Care Provider] - Follow up as needed
[2018-10-09 06:12] VITALS: BP 139/89
== END 2018-10-09 06:11 | disposition home or self-care (01) ==
LOC: ER 04:17
DX: R10.11 Right upper quadrant pain (principal); R11.0 Nausea; E78.00 Pure hypercholesterolemia, unspecified; I10 Essential (primary) hypertension; E11.9 Type 2 diabetes mellitus without complications; Z90.710 Acquired absence of both cervix and uterus
CPT/HCPCS: 99283; 96372; J2270; J2550

== ENCOUNTER 2018-10-09 08:53 | Observation (INO) | payer MEDICAID ==
[2018-10-09] MEDS ORDERED: NORMAL SALINE 1000 ML 1,000 ML IV ONE (09:34)
[2018-10-09] MEDS ORDERED: ONDANSETRON HCL INJ/PF 4 MG/2 ML SDV IV ONE (09:34)
[2018-10-09] MEDS ORDERED: MORPHINE SULFATE 10 MG/ML INJ IV ONE (09:34)
--- NOTE | 2018-10-09 09:36 | ER Document Report ---
ED General - General Chief Complaint: Upper Abdominal Pain Stated Complaint: ABDOMINAL PAIN Time Seen by Provider: 10/09/18 09:18 Primary Care Provider: FRANCI PONCE NP [Primary Care Provider] - Follow up as needed TRAVEL OUTSIDE OF THE [place] IN LAST 30 DAYS: No - HPI Notes: Patient is a 48-year-old female with a history of type 2 diabetes, hypertension, hypercholesterolemia, cholelithiasis, obesity who presents the emergency department complaining of right upper quadrant abdominal pain that is been sharp since last night. Patient has been evaluated twice in the last 36 hours and this will be her third visit for the same pain. Patient states that she has not been able to fill her prescriptions that she was given for her visit last night. Patient states that she has not slept at all last night because of the pain. She has had associated nausea and vomiting. She still urinating and having normal bowel movements. Patient has been to the ED multiple times in the past for cholelithiasis/RUQ type pain. Denies drug allergies. Denies any headache, fever, URI, sore throat, chest pain, palpitations, syncope, cough, shortness of breath, wheeze, dyspnea, diarrhea, urinary retention, dysuria, hematuria, back pain, or rash. - Related Data Allergies/Adverse Reactions: No Known Allergies Allergy (Verified 10/09/18 09:30) Past Medical History - Social History Smoking Status: Never Smoker Frequency of alcohol use: None Drug Abuse: None Family History: None, Reviewed & Not Pertinent, CAD, DM, Hyperlipidemia, Hypertension, Malignancy - Maternal grandfather had stomach cancer Patient has suicidal ideation: No Patient has homicidal ideation: No - Past Medical History Cardiac Medical History: Reports: Hx Hypercholesterolemia, Hx Hypertension Neurological Medical History: Reports: Hx Seizures - STATES HAD A SEIZURE IN 2004 Endocrine Medical History: Reports: Hx Diabetes Mellitus Type 2 Renal/ Medical History: Denies: Hx Peritoneal Dialysis GI Medical History: Reports: Hx Gastroesophageal Reflux Disease Psychiatric Medical History: Reports: Hx Depression Past Surgical History: Reports: Hx Hysterectomy - Immunizations Hx Diphtheria, Pertussis, Tetanus Vaccination: No Review of Systems - Review of Systems -: Yes All other systems reviewed and negative Physical Exam - Vital signs Vitals: Temp Pulse Resp BP Pulse Ox 97.5 F 85 30 H 149/93 H 100 10/09/18 09:01 10/09/18 09:01 10/09/18 09:01 10/09/18 09:01 10/09/18 09:01 - Notes Notes: PHYSICAL EXAMINATION: GENERAL: no acute distress. Pt is crying due to pain and laying on right side HEAD: Atraumatic, normocephalic. EYES: Pupils equal round and reactive to light, extraocular movements intact, sclera anicteric, conjunctiva are normal. ENT: EAC clear b/l. TM's intact b/l without erythema, fluid, or perforation. Nares patent and without discharge. oropharynx clear without exudates. No tonsilar hypertrophy or erythema. Moist mucous membranes. No sinus tenderness. NECK: Normal range of motion, supple without lymphadenopathy LUNGS: Breath sounds clear to auscultation bilaterally and equal. No wheezes rales or rhonchi. HEART: Regular rate and rhythm without murmurs, rubs, gallops. ABDOMEN: Soft, nondistended abdomen. No guarding, no rebound. Normal bowel sounds present. No CVA tenderness bilaterally. + tenderness RUQ. Musculoskeletal: FROM to passive/active. Strength 5+/5. Extremities: No cyanosis, clubbing, or edema b/l. Peripheral pulses 2+. Capillary refill less than 3 seconds. NEUROLOGICAL: Normal speech, normal gait. PSYCH: Normal mood, normal affect. SKIN: Warm, Dry, normal turgor, no rashes or lesions noted. Course - Re-evaluation Re-evalutation: 10/09/18 11:10 I have spoke with Dr. De La Fuente who will come evaluate the patient after his surgery in 2-3hrs. Labs otherwise unremarkable, vitals acceptable. Pt still complaining of RUQ pain. US pending. 10/09/18 14:23 Patient is an afebrile, well-hydrated, 48-year-old female who presents emergency department with acute cholecystitis. Vitals are currently acceptable. PE is otherwise unremarkable. Labs are unremarkable. The ultrasound result. Her general surgeon, Dr. De La Fuente, has accepted patient under his care. - Vital Signs Vital signs: Temp Pulse Resp BP Pulse Ox 98.1 F 80 18 117/73 98 10/09/18 14:18 10/09/18 14:18 10/09/18 14:18 10/09/18 14:18 10/09/18 14:18 - Laboratory Result Diagrams: 10/09/18 10:05 10/09/18 10:05 Laboratory results interpreted by me: 10/09/18 10/09/18 10/09/18 10:05 10:05 11:25 MCV 75 L MCH 25.1 L RDW 15.5 H Plt Count 602 H Glucose 132 H Calcium 10.5 H Total Protein 8.5 H Urine Ketones TRACE H Discharge - Discharge Clinical Impression: Acute cholecystitis Condition: Stable Disposition: ADMITTED INPATIENT Admitting Provider: Surgicalist - Dr. De La Fuente Unit Admitted: Surgical Floor Referrals: FRANCI PONCE, PEST CONTROL SERVICE TECHNICIAN [Primary Care Provider] - Follow up as needed
[2018-10-09 10:30] LABS: ABSOLUTE BASOPHILS # (AUTO) 0.1 10^3/uL (0.0-0.2); ABSOLUTE EOSINOPHILS # (AUTO) 0.1 10^3/uL (0.0-0.6); ABSOLUTE LYMPHOCYTES (AUTO) 2.1 10^3/uL (0.5-4.7); ABSOLUTE MONOCYTES (AUTO) 0.8 10^3/uL (0.1-1.4); ABSOLUTE NEUT (AUTO) 6.7 10^3/uL (1.7-8.2); BASOPHILS % (AUTO) 0.8 % (0-2); EOSINOPHILS % (AUTO) 0.5 % (0-6); HEMATOCRIT 39.1 % (36.0-47.0); LYMPHOCYTES % (AUTO) 21.8 % (13-45); MEAN CORPUSCULAR HEMOGLOBIN 25.1 pg (27.0-33.4); MEAN CORPUSCULAR HGB CONC 33.3 g/dL (32.0-36.0); MEAN CORPUSCULAR VOLUME 75 fl (80-97); MONOCYTES % (AUTO) 7.9 % (3-13); PLATELET COUNT 602 10^3/uL (150-450); RED CELL DISTRIBUTION WIDTH 15.5 % (11.5-14.0); TOTAL CELLS COUNTED % (AUTO) 100 %; WHITE BLOOD COUNT 9.8 10^3/uL (4.0-10.5)
[2018-10-09 10:45] LABS: ALANINE AMINOTRANSFERASE 29 U/L (9-52); ALBUMIN 4.4 g/dL (3.5-5.0); ALKALINE PHOSPHATASE 75 U/L (38-126); ASPARTATE AMINO TRANSFERASE 27 U/L (14-36); BILIRUBIN,DIRECT 0.3 mg/dL (0.0-0.4); BILIRUBIN,TOTAL 0.5 mg/dL (0.2-1.3); BLOOD UREA NITROGEN 14 mg/dL (7-20); CALCIUM 10.5 mg/dL (8.4-10.2); CARBON DIOXIDE 27 mmol/L (22-30); CHLORIDE 99 mmol/L (98-107); GLUCOSE 132 mg/dL (75-110); LIPASE 138.3 U/L (23-300); POTASSIUM 4.8 mmol/L (3.6-5.0); TOTAL PROTEIN 8.5 g/dL (6.3-8.2)
[2018-10-09 10:47] LABS: ANION GAP 11 (5-19); SODIUM 137.2 mmol/L (137-145)
[2018-10-09] MEDS ORDERED: KETOROLAC TROMETHAMINE INJ/PF 30 MG/1 ML SDV IV ONE (11:10)
[2018-10-09 12:00] LABS: APPEARANCE,URINE SLIGHTLY-CLOUDY; BILIRUBIN,URINE NEGATIVE (NEGATIVE); COLOR,URINE YELLOW; GLUCOSE, URINE NEGATIVE (NEGATIVE); KETONES,URINE TRACE mg/dL (NEGATIVE); LEUKOCYTE ESTERASE,URINE NEGATIVE (NEGATIVE); NITRITE,URINE NEGATIVE (NEGATIVE); PROTEIN,URINE NEGATIVE (NEGATIVE); URINE SPECIFIC GRAVITY 1.016; UROBILINOGEN,URINE NEGATIVE mg/dL (<2.0)
--- NOTE | 2018-10-09 12:56 | RADIOLOGY REPORT (SQ) ---
EXAM DESCRIPTION: U/S ABDOMEN LIMITED W/O DOP COMPLETED DATE/TIME: 10/09/2018 12:43 pm REASON FOR STUDY: ruq pain, h/o cholelithiasis COMPARISON: Right upper quadrant ultrasound 10/07/2018, 06/29/2018 CT abdomen and pelvis 01/06/2018, 08/08/2017 TECHNIQUE: Dynamic and static grayscale images acquired of the abdomen and recorded on PACS. Additio nal selected color Doppler and spectral images recorded. LIMITATIONS: Large body habitus, midline bowel gas FINDINGS: PANCREAS: Midline pancreas unremarkable LIVER: Echogenic liver from fatty infiltration. No gross masses. LIVER VASCULATURE: Normal directional flow of the main portal vein and hepatic veins. GALLBLADDER: Multiple stones in the gallbladder. There is borderline gallbladder wall thickening and pericholecystic fluid ULTRASOUND-DETECTED LOPEZ'S SIGN: Positive INTRAHEPATIC DUCTS AND COMMON DUCT: Not well seen, common bile duct 10 mm at the corin hepatis. Dist al common duct stone could not be excluded. INFERIOR VENA CAVA: Not well seen AORTA: Not well seen RIGHT KIDNEY: Normal size. Normal echogenicity. No solid or suspicious masses. No hydronephrosis. No calcifications. PERITONEAL AND RIGHT PLEURAL SPACE: No ascites or effusions. OTHER: No other significant findings. IMPRESSION: Stones in the gallbladder. Pericholecystic fluid. Positive sonographic Lopez sign wor risome for acute cholecystitis. Common bile duct 10 mm diameter at the corin hepatis. Distal common duct not well seen. Choledochol ithiasis could not be excluded TECHNICAL DOCUMENTATION: JOB ID: [id number] [employer]- All Rights Reserved Reading location - IP/workstation name: [email or web address]
[2018-10-09] MEDS ORDERED: PIPERACILLIN/TAZOBACTAM 3.375 GM VIAL IV ONE (13:54)
[2018-10-09] MEDS ORDERED: KETOROLAC TROMETHAMINE 60 MG/2 ML SDV ONE (14:26)
[2018-10-09] MEDS ORDERED: ROCURONIUM BROMIDE INJ 50 MG/5 ML VIAL IV ONE (14:26)
[2018-10-09] MEDS ORDERED: SUCCINYLCHOLINE CHLORIDE INJ 200 MG/10 ML VIAL ONE (14:26)
[2018-10-09] MEDS ORDERED: METOCLOPRAMIDE HCL INJ/PF 10 MG/2 ML SDV ONE (14:26)
[2018-10-09] MEDS ORDERED: GLYCOPYRROLATE 1 MG/5 ML SYRINGE ONE (14:26)
[2018-10-09] MEDS ORDERED: LIDOCAINE 2% INJ-PF (20 MG/ML) 2 ML AMPUL ONE (14:26)
[2018-10-09] MEDS ORDERED: NEOSTIGMINE METHYLSULFATE 10 MG/10 ML VIAL ONE (14:26)
[2018-10-09] MEDS ORDERED: ONDANSETRON HCL INJ/PF 4 MG/2 ML SDV ONE (14:26)
[2018-10-09] MEDS ORDERED: DEXAMETHASONE SOD PHOSPHATE INJ 4 MG/1 ML VIAL ONE (14:26)
--- NOTE | 2018-10-09 15:35 | PDOC H&P ---
History of Present Illness Admission Date/PCP: 10/09/18 14:36 FRANCI PONCE NP History of Present Illness: MARY SAPP is a 48 year old female with a history of diabetes and hypert ension. She has a 2-day history of sharp, stabbing right upper quadrant pain. The patient reports that yesterday it became worse and she presented to the emergency department. She was sent home, however her pain worsened and she re- presented to the emergency department. She has had nausea, without any vomiting. She denies melena, hematochezia, hematemesis. She rates her pain as 7 out of 10. It radiates around her right side. Nothing makes her pain better. Movement and palpation make her pain worse. She denies chest pain, shortness of breath, dizziness, orthostasis, fatigue, malaise. She does report headache, abdominal pain, nausea. Past Medical History Cardiac Medical History: Reports: Hyperlipidema, Hypertension Neurological Medical History: Reports: Seizures - STATES HAD A SEIZURE IN 2004 Endocrine Medical History: Reports: Diabetes Mellitus Type 2 GI Medical History: Reports: Gastroesophageal Reflux Disease Psychiatric Medical History: Reports: Depression Hematology: Denies: Anemia Past Surgical History Past Surgical History: Reports: Hysterectomy Social History Smoking Status: Never Smoker Frequency of Alcohol Use: None Hx Recreational Drug Use: No Hx Prescription Drug Abuse: No Family History Family History: None, Reviewed & Not Pertinent, CAD, DM, Hyperlipidemia, Hypertension, Malignancy - Maternal grandfather had stomach cancer Parental Family History Reviewed: Yes Children Family History Reviewed: Yes Sibling(s) Family History Reviewed.: Yes Medication/Allergy Home Medications: Cyclobenzaprine HCl 10 mg PO HSP PRN 09/09/14 Labetalol HCl [Normodyne Inj 20 mg/4 ml Syringe] 20 mg PO DAILY 09/09/14 Lisinopril [Zestril] 20 mg PO DAILY 09/09/14 Metformin HCl [Glucophage] 500 mg PO DAILY 09/09/14 Omeprazole [Prilosec] 40 mg PO DAILY 09/09/14 Metoclopramide HCl [Reglan 10 mg Tablet] 1 - 2 tab PO ASDIR PRN #30 tablet 10/01/14 Sucralfate [Carafate 1 gm Tablet] 1 gm PO ACHS #120 tablet 10/01/14 Ranitidine HCl [Zantac 75 mg Tablet] 75 mg PO BID #60 tablet 02/07/15 Sucralfate [Carafate 1 gm Tablet] 1 gm PO ACHS #120 tablet 02/07/15 Dicyclomine HCl [Bentyl 20 mg Tablet] 20 mg PO QID #30 tablet 08/08/17 Omeprazole 20 mg PO DAILY #30 capsule. 08/08/17 Ondansetron [Zofran Odt] 4 mg PO Q6 PRN #30 tab.john 08/08/17 Famotidine [Pepcid 20 mg Tablet] 20 mg PO BID #60 tablet 01/06/18 Morphine Sulfate [Morphine Ir 15 Mg Tablet] 15 mg PO Q4H PRN #12 tablet 07/09/18 Promethazine HCl [Phenergan 25 mg Tablet] 1 - 2 tab PO Q6H PRN #15 tablet 07/09/18 Dicyclomine HCl [Bentyl 20 mg Tablet] 20 mg PO QID #20 tablet 10/09/18 Promethazine HCl [Phenergan 25 mg Tablet] 1 - 2 tab PO Q6H PRN #15 tablet 10/09/18 Allergies/Adverse Reactions: No Known Allergies Allergy (Verified 10/09/18 09:30) Review of Systems Constitutional: PRESENT: headache(s). ABSENT: chills, fatigue, fever(s) Eyes: ABSENT: visual disturbances Ears: ABSENT: hearing changes Nose, Mouth, and Throat: ABSENT: sore throat Cardiovascular: ABSENT: chest pain, dyspnea on exertion Respiratory: ABSENT: cough, dyspnea Gastrointestinal: PRESENT: abdominal pain, nausea. ABSENT: vomiting Genitourinary: ABSENT: dysuria Musculoskeletal: ABSENT: back pain Integumentary: ABSENT: pruritus, rash Neurological: ABSENT: confusion, convulsions, dizziness Psychiatric: ABSENT: anxiety, depression Endocrine: ABSENT: cold intolerance, heat intolerance Hematologic/Lymphatic: ABSENT: easy bleeding, easy bruising Physical Exam Vital Signs: Temp Pulse Resp BP Pulse Ox 98.1 F 80 18 117/73 98 10/09/18 14:18 10/09/18 14:18 10/09/18 14:18 10/09/18 14:18 10/09/18 14:18 Intake & Output 10/08/18 10/09/18 10/10/18 06:59 06:59 06:59 Intake Total 1000 Balance 1000 Weight 103.6 kg General appearance: PRESENT: no acute distress, obese Head exam: PRESENT: atraumatic, normocephalic Eye exam: PRESENT: EOMI, PERRLA. ABSENT: scleral icterus Mouth exam: PRESENT: neck supple Teeth exam: ABSENT: poor dentation Neck exam: ABSENT: meningismus, tenderness, thyromegaly, tracheal deviation Respiratory exam: PRESENT: clear to auscultation patrice, unlabored. ABSENT: chest wall tenderness, tachypnea, wheezes Cardiovascular exam: PRESENT: RRR Pulses: PRESENT: normal radial pulses Vascular exam: PRESENT: normal capillary refill. ABSENT: pallor GI/Abdominal exam: PRESENT: distended, guarding - Voluntary, right upper quadrant, soft, tenderness Rectal exam: PRESENT: deferred Extremities exam: ABSENT: clubbing Musculoskeletal exam: ABSENT: deformity Neurological exam: PRESENT: alert, awake, oriented to person, oriented to place, oriented to time, oriented to situation, CN II-XII grossly intact Psychiatric exam: ABSENT: agitated, anxious, depressed Focused psych exam: ABSENT: delusional Skin exam: ABSENT: cyanosis, erythema, jaundice Results Laboratory Results: 10/09/18 10:05 10/09/18 10:05 10/09/18 10/09/18 10/09/18 10:05 10:05 11:25 WBC 9.8 RBC 5.20 Hgb 13.0 Hct 39.1 MCV 75 L MCH 25.1 L MCHC 33.3 RDW 15.5 H Plt Count 602 H Seg Neutrophils % 69.0 Lymphocytes % 21.8 Monocytes % 7.9 Eosinophils % 0.5 Basophils % 0.8 Absolute Neutrophils 6.7 Absolute Lymphocytes 2.1 Absolute Monocytes 0.8 Absolute Eosinophils 0.1 Absolute Basophils 0.1 Sodium 137.2 Potassium 4.8 Chloride 99 Carbon Dioxide 27 Anion Gap 11 BUN 14 Creatinine 0.86 Est GFR ( Amer) > 60 Est GFR (Non-Af Amer) > 60 Glucose 132 H Calcium 10.5 H Total Bilirubin 0.5 AST 27 ALT 29 Alkaline Phosphatase 75 Total Protein 8.5 H Albumin 4.4 Lipase 138.3 Urine Color YELLOW Urine Appearance SLIGHTLY-CLOUDY Urine pH 8.0 Ur Specific [place] 1.016 Urine Protein NEGATIVE Urine Glucose (UA) NEGATIVE Urine Ketones TRACE H Urine Blood NEGATIVE Urine Nitrite NEGATIVE Ur Leukocyte Esterase NEGATIVE Urine WBC (Auto) 3 Urine RBC (Auto) 1 Impressions: Abdomen Ultrasound 10/09/18 11:11 IMPRESSION: Stones in the gallbladder. Pericholecystic fluid. Positive sonographic Lopez sign worrisome for acute cholecystitis. Common bile duct 10 mm diameter at the corin hepatis. Distal common duct not well seen. Choledocholithiasis could not be excluded Assessment & Plan - Diagnosis (1) Acute cholecystitis Is this a current diagnosis for this admission?: Yes - Plan Summary Plan Summary: This is a 48-year-old female with right upper quadrant pain, thickening of her gallbladder wall, and pericholecystic fluid. The patient has acute cholecystitis based on laboratory evaluation, imaging, and physical exam. I will admit the patient to the hospital, start her on intravenous antibiotics, and plan for surgical intervention. Risks/benefits discussed, informed consent obtained, and all questions answered.
[2018-10-09] MEDS ORDERED: RINGERS SOLUTION,LACTATED 1,000 ML IV PRN (16:03)
[2018-10-09] MEDS ORDERED: HYDROMORPHONE HCL INJ/PF 2 MG/ML AMPULE ONE (17:08)
[2018-10-09] MEDS ORDERED: MIDAZOLAM 2 MG/2 ML INJ ONE (17:08)
[2018-10-09] MEDS ORDERED: ACETAMINOPHEN 1,000 MG/100 ML RTUPB IV ONE (17:08)
[2018-10-09] MEDS ORDERED: PROPOFOL INJ 200 MG/20 ML VIAL IV ONE (17:08)
[2018-10-09] MEDS ORDERED: BUPIVACAINE HCL 0.25 % INJ/PF (2.5 MG/1 ML) 30 ML VIAL ONE (17:20)
[2018-10-09] MEDS ORDERED: GLUCAGON,HUMAN RECOMB 1 MG INJ ONE (17:21)
[2018-10-09] MEDS ORDERED: OXYCODONE-ACETAMINOPHEN 5-325 MG TABLET PO PRN ×2 (18:07)
[2018-10-09] MEDS ORDERED: MEPERIDINE HCL/PF INJ 25 MG/1 ML DISP.SYRIN IV PRN (18:07)
[2018-10-09] MEDS ORDERED: DIPHENHYDRAMINE HCL 50 MG/ML VIAL IV PRN (18:07)
[2018-10-09] MEDS ORDERED: FENTANYL CITRATE INJ/PF 100 MCG/2 ML AMPUL IV PRN ×3 (18:07)
[2018-10-09] MEDS ORDERED: PROMETHAZINE HCL INJ 25 MG/1 ML VIAL IV PRN ×2 (18:07)
[2018-10-09] MEDS ORDERED: ONDANSETRON HCL INJ/PF 4 MG/2 ML SDV IV PRN ×2 (18:07→19:41)
[2018-10-09] MEDS ORDERED: MORPHINE SULFATE 10 MG/ML INJ IV PRN (19:39)
[2018-10-09] MEDS ORDERED: HYDROCODONE/ACETAMINOPHEN 5-325 MG TABLET PO PRN (19:39)
[2018-10-09] MEDS ORDERED: LORAZEPAM 0.5 MG TABLET PO PRN (19:43)
[2018-10-09] MEDS ORDERED: IBUPROFEN 800 MG TABLET PO ONE (20:30)
--- NOTE | 2018-10-09 21:39 | Operative Report ---
Nonrecallable Operative Report DATE OF SURGERY: 10/09/18 PREOPERATIVE DIAGNOSIS: Acute cholecystitis POSTOPERATIVE DIAGNOSIS: 1. Acute cholecystitis. 2. Gallbladder hydrops. 3. Occluded cystic duct. 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 Unable to perform cholangiogram. ESTIMATED BLOOD LOSS: 50 cc PROCEDURE: Drains/implants: 15 Vietnamese round Miek drain in the gallbladder fossa. Procedure in detail: After informed consent was obtained, the patient was brought into the operating room and laid in the supine position. The area of the abdomen was prepped and draped in a normal sterile fashion. A supraumbilical incision was created with a 15 blade scalpel. Dissection was carried through the subcutaneous tissue using sharp and blunt means. The linea alba fascia was incised sharply, the abdomen was entered sharply. The balloon trocar was inserted, and pneumoperitoneum was achieved. A subxiphoid 5 mm port was placed under direct laparoscopic visualization. 2 more 5 mm ports were placed in the right upper quadrant in similar fashion. Atraumatic graspers were placed through the 5 mm ports. The gallbladder was retracted cephalad and laterally. There was a dense inflammatory reaction around the gallbladder. There was pericholecystic fluid present. The gallbladder was stiff and difficult to grasp. The inflammation extends all the way down into the infundibulum of the gallbladder. The gallbladder was retracted cephalad, however the inflammation around the infundibulum was too dense to dissect safely. Secondary to this, a dome down technique was employed. The gallbladder was freed from the liver starting at the dome of the gallbladder and working down. This was done using Bovie electrocautery. Once the infundibulum was reached, the gallbladder was amputated. The cystic artery was easily identified in the wall of the gallbladder. This was clipped with hemoclips. The gallbladder was then placed into an Endo Catch bag, and pulled out through the umbilicus. Next, an attempt was made to identify the cystic duct from within the infundibulum of the gallbladder. This was unsuccessful. A cholangiogram was planned, however could not be performed due to complete occlusion of the cystic duct. At this point the cholangiogram was abandoned. The remaining gallbladder mucosa was cauterized using Bovie electrocautery. After this was completed, the abdomen was copiously irrigated with approximately 3 L of saline. The hilum was then inspected. It was found to be free of any leakage of blood or bile. A 15 Vietnamese round Mike drain was placed through the lateralmost right upper quadrant trocar and directed into the gallbladder fossa. The drain was sutured to the skin using 2-0 nylon suture. The remaining 5 mm trochars were removed under direct laparoscopic visualization. The supraumbilical trocar was removed, and pneumoperitoneum was relieved. The supraumbilical fascia was closed using 0 Vicryl suture in [id number] fashion. The overlying skin was closed using 4-0 Vicryl Rapide suture in subcuticular fashion. Dressings were placed, and the procedure was concluded. All sponge, instrument, and needle counts were correct x2. Condition: Stable.
[2018-10-09] MEDS ORDERED: ESCITALOPRAM OXALATE 10 MG TABLET PO SCH (22:00)
[2018-10-09] MEDS ORDERED: CLONIDINE HCL 0.1 MG TABLET PO SCH (22:00)
[2018-10-09] MEDS: FAMOTIDINE 20 MG TABLET PO SCH (22:01)
[2018-10-09] MEDS: LABETALOL HCL 200 MG TABLET PO SCH (22:01)
[2018-10-10 07:53] LABS: ABSOLUTE BASOPHILS # (AUTO) 0.1 10^3/uL (0.0-0.2); ABSOLUTE MONOCYTES (AUTO) 0.8 10^3/uL (0.1-1.4); BASOPHILS % (AUTO) 0.6 % (0-2); HEMATOCRIT 34.2 % (36.0-47.0); HEMOGLOBIN 11.3 g/dL (12.0-15.5); LYMPHOCYTES % (AUTO) 7.6 % (13-45); MEAN CORPUSCULAR VOLUME 76 fl (80-97); MONOCYTES % (AUTO) 6.1 % (3-13); PLATELET COUNT 496 10^3/uL (150-450); RED BLOOD COUNT 4.52 10^6/uL (3.72-5.28); RED CELL DISTRIBUTION WIDTH 16.1 % (11.5-14.0); SEGMENTED NEUTROPHILS % (AUTO) 85.7 % (42-78); TOTAL CELLS COUNTED % (AUTO) 100 %; WHITE BLOOD COUNT 12.9 10^3/uL (4.0-10.5)
[2018-10-10] MEDS ORDERED: METFORMIN HCL 500 MG TABLET PO SCH (08:00)
[2018-10-10] MEDS: IBUPROFEN 800 MG TABLET PO SCH ×2 (08:02→14:23)
[2018-10-10 08:12] LABS: ALANINE AMINOTRANSFERASE 30 U/L (9-52); ALBUMIN 3.6 g/dL (3.5-5.0); ALKALINE PHOSPHATASE 59 U/L (38-126); ANION GAP 6 (5-19); ASPARTATE AMINO TRANSFERASE 27 U/L (14-36); BILIRUBIN,DIRECT 0.2 mg/dL (0.0-0.4); BILIRUBIN,TOTAL 0.4 mg/dL (0.2-1.3); BLOOD UREA NITROGEN 11 mg/dL (7-20); CALCIUM 9.7 mg/dL (8.4-10.2); CARBON DIOXIDE 27 mmol/L (22-30); CHLORIDE 105 mmol/L (98-107); GLUCOSE 159 mg/dL (75-110); POTASSIUM 4.1 mmol/L (3.6-5.0); SODIUM 138.1 mmol/L (137-145); TOTAL PROTEIN 7.1 g/dL (6.3-8.2)
[2018-10-10] MEDS: FAMOTIDINE 20 MG TABLET PO SCH (09:27)
[2018-10-10] MEDS: LABETALOL HCL 200 MG TABLET PO SCH (09:27)
[2018-10-10] MEDS ORDERED: (PENDING PHARMACY ID) (Lisinopril/Hydrochlorothiazide [Lisinopril-Hctz 20-25 Mg Tab] 1 EAC PO SCH (10:00)
[2018-10-10] MEDS ORDERED: HYDROCHLOROTHIAZIDE 12.5 MG TABLET PO SCH (10:00)
[2018-10-10] MEDS ORDERED: LISINOPRIL 10 MG TABLET PO SCH (10:00)
[2018-10-10] MEDS ORDERED: DEXTROSE 40% GEL 15 GM TUBE X 2 PO PRN (14:00)
[2018-10-10] MEDS ORDERED: GLUCAGON,HUMAN RECOMB 1 MG INJ IM PRN (14:00)
[2018-10-10] MEDS ORDERED: DEXTROSE 40% GEL 15 GM TUBE PO PRN (14:00)
[2018-10-10] MEDS ORDERED: DEXTROSE 50%-WATER SYRINGE 25 GM/50 ML DOSE IV PRN (14:00)
[2018-10-10] MEDS ORDERED: DEXTROSE 50%-WATER SYRINGE 12.5 GM/25 ML DOSE IV PRN (14:00)
--- NOTE | 2018-10-10 15:49 | DISCHARGE SUMMARY E ---
Discharge Summary NAME: MARY SAPP : 1970 AGE: 48Y ADMITTED: 10/09/2018 DISCHARGED: 10/10/2018 REASON FOR ADMISSION: Acute abdominal pain. SUMMARY OF HOSPITALIZATION: The patient is a 48-year-old -[place] female with a history of diabetes mellitus, who presented to the emergency department complaining of acute onset abdominal pain in the right upper quadrant. DICTATING PHYSICIAN: JASS PERRIN M.D. [id number] PHY#: [id number] ID: [id number] JOB#: [id number] ACCT: [id number] cc:Coleen KHAN M.D. >
[2018-10-10 15:54] VITALS: BP 141/46
[2018-10-10] MEDS ORDERED: INSULIN REG, HUMAN 100 UNIT/ML 3 ML VIAL (PYX) SUBCUT SCH (16:00)
--- NOTE | 2018-10-10 17:09 | DISCHARGE SUMMARY E ---
Discharge Summary NAME: MARY SAPP : 1970 AGE: 48Y ADMITTED: 10/09/2018 DISCHARGED: 10/10/2018 REASON FOR ADMISSION: Acute abdominal pain. SUMMARY OF HOSPITALIZATION: The patient is a 48-year-old -[place] female with a history of diabetes mellitus, complaining of acute onset of abdominal pain. She was worked up by gallbladder ultrasonography and noted to have gallstones. Surgery was consulted because of her history of abdominal pain, cholelithiasis, and diabetes mellitus. She was felt to be an appropriate candidate for interval cholecystectomy. The patient was admitted to the surgical service and taken to the operating room by Dr. De La Fuente on the evening of 10/09/2018. She underwent laparoscopic cholecystectomy. She had a severely inflamed gallbladder adhesed to the inferior surface of the liver and subsequently underwent a subtotal cholecystectomy with drain placement. The drain was left in. She tolerated the procedure well, felt better thereafter, remained hemodynamically stable. She started on a diet; this was advanced and she tolerated it well. By the following day, she was getting about reasonably well and was ready for discharge home with her drain intact. DICTATING PHYSICIAN: JASS PERRIN M.D. [id number] PHY#: [id number] ID: [id number] JOB#: [id number] ACCT: [id number] cc:DEBBIE DE LA FUENTE M.D. JASS PERRIN M.D. >
== END 2018-10-10 16:03 | disposition home or self-care (01) ==
LOC: ER 08:53 → INTOOBSV 14:36 → EH 14:36 → 2N 20:10
PROVIDERS: ADMIT Surgery; ATTEND Surgery
PROC: 0FT44ZZ Resection of Gallbladder, Percutaneous Endoscopic Approach (ICD-10-PCS; principal; 2018-10-09 17:30)
DX: K80.13 Calculus of gallbladder with acute and chronic cholecystitis with obstruction (principal); K21.9 Gastro-esophageal reflux disease without esophagitis; E11.9 Type 2 diabetes mellitus without complications; I10 Essential (primary) hypertension; R51 Headache; K82.1 Hydrops of gallbladder; Z90.710 Acquired absence of both cervix and uterus; Z80.0 Family history of malignant neoplasm of digestive organs; Z79.899 Other long term (current) drug therapy; Z79.84 Long term (current) use of oral hypoglycemic drugs
CPT/HCPCS: 99285; 96361; 96374; 96375; 36415 ×2; 82962 ×2; 83690; 85025 ×2; 80053 ×2; 81001; 88304 ×2; 76705; 47562; Q9967; J2250; J3490 ×12; J1100; J1885 ×2; J2765; J2270; J1170; J0330; J2405; S0020; J7030; J7120; J2704; J2543; J0131; 790; J1610